=== PATIENT | male | born 1950 | race Caucasian/White ===

== ENCOUNTER 2024-08-02 08:58 | Inpatient (IN) | payer MEDICARE, SELFPAY ==
[2024-08-02] VITALS (40 sets, daily range): BP systolic 123–165; BP diastolic 55–95; PULSE 78–95; RESP 3–33; TEMP 35.9–36.9; O2SAT 95–100; BMI 28.7
--- NOTE | 2024-08-02 | DI.RAD.S_ITS ---
PROCEDURE: XR ANKLE LT MIN 3V INDICATIONS: ORIF TECHNIQUE: Fluoroscopic guidance utilized for a ankle ORIF. COMPARISON: None. FINDINGS: Fluoroscopic images submitted for an ankle ORIF. Please see operative note for further discussion. IMPRESSION: Fluoroscopic guidance. Dictated by: Nik Rodrigez M.D. on 08/03/2024 at 10:30 Approved by: Nik Rodrigez M.D. on 08/03/2024 at 10:30
--- NOTE | 2024-08-02 | DI.RAD.S_ITS ---
PROCEDURE: XR ANKLE LT 2V INDICATIONS: POST REDUCTION TECHNIQUE: 3 views of the ankle were acquired. COMPARISON: [facility], CR, XR ANKLE LT 2V, 08/02/2024, 9:11. FINDINGS: Bones: Persistent tibiotalar fracture dislocation with associated fibular fracture now in fiberglass cast. Soft tissues: No tibiotalar joint effusion. Achilles tendon appears normal. IMPRESSION: Persistent tibiotalar fracture dislocation with complete ankle mortise disruption in cast Approved by: Rafael Rubin M.D. on 08/02/2024 at 9:28
--- NOTE | 2024-08-02 09:11 | DI.RAD.S_ITS ---
PROCEDURE: XR ANKLE LT 2V INDICATIONS: deformity, fall TECHNIQUE: To views of the ankle were acquired. COMPARISON: None. FINDINGS: Bones: Oblique angulated fracture of the distal fibula as well as complete ankle mortise disruption and lateral subluxation of the talus relative to the tibia. Medial malleolus fracture with complete distraction of the distal fracture fragment which remains associated with the displaced talus. Probable small fracture of the posterior distal tibia noted as well. Soft tissues: Soft tissue swelling IMPRESSION: Tibiotalar fracture dislocation with lateral displacement of the talus Approved by: Rafael Rubin M.D. on 08/02/2024 at 9:23
--- NOTE | 2024-08-02 09:11 | DI.RAD.S_ITS ---
PROCEDURE: XR FOOT LT 2V INDICATIONS: deformity, fall TECHNIQUE: 2 views of the foot were acquired. COMPARISON: None. FINDINGS: Bones: Complete tibial talar dislocation with lateral displacement of the talus subtalar joints grossly aligned. Probable distal tibial and fibular fractures not well depicted Soft tissues: No tibiotalar joint effusion. Achilles tendon appears normal. IMPRESSION: Tibiotalar fracture dislocation with lateral displacement of the talus. Approved by: Rafael Rubin M.D. on 08/02/2024 at 9:20
--- NOTE | 2024-08-02 09:16 | DI.RAD.S_ITS ---
PROCEDURE: XR CHEST 1V INDICATIONS: fall TECHNIQUE: One view of the chest was acquired. COMPARISON: None. FINDINGS: Surgical changes and devices: None. Lungs and pleura: Left basilar atelectasis and or infiltrate. Low lung volumes accentuate pulmonary interstitium and heart size. Mediastinum: Mediastinal contours appear normal. Heart size is normal. Bones and chest wall: No suspicious bony lesions. Overlying soft tissues appear unremarkable. IMPRESSION: Left basilar atelectasis and or infiltrate Approved by: Rafael Rubin M.D. on 08/02/2024 at 9:24
--- NOTE | 2024-08-02 09:17 | EKG_ITS ---
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
--- NOTE | 2024-08-02 09:23 | ED.FALL ---
HPI - Fall General Chief Complaint: Fall Stated Complaint: Fall Time Seen by Provider: 08/02/24 09:15 Source: patient and EMS Mode of arrival: EMS History of Present Illness HPI Narrative: Patient is a 74-year-old male history of diabetes with neuropathy hypertension chronic pain on chronic morphine presenting today with mechanical fall and left ankle pain deformity. He reports that he has been chronically on morphine for years who associated refilled 2 days ago fortunately the doctor did not call it in. He was sleepwalking this morning which he says is from the withdrawal of morphine when he fell and hurt his left ankle. He has not on any antiplatelet or anticoagulation medication. Did not hit his head or lose consciousness. Has significant pain and deformity in the left ankle. Knee and hip are non tender. He says he did take 1 dose of Imodium last night for some mild diarrhea. He has not had any nausea or vomiting. He did have some water this morning but did not eat Related Data Home Medications Medication Instructions Recorded Confirmed dextroamphetamine-amphetamine 30 30 mg PO 1300 ##0 01/02/13 08/02/24 mg tablet lisinopril 40 mg tablet (Zestril) 40 mg PO DAILY ##0 01/02/13 08/02/24 metformin 1,000 mg tablet 1,000 mg PO BIDWM ##0 01/02/13 08/02/24 (Glucophage) bupropion HCl 150 mg tablet,12 hr 150 mg PO BID 08/02/24 08/02/24 sustained-release dextroamphetamine-amphetamine 30 60 mg PO QAM 08/02/24 08/02/24 mg tablet fluoxetine 40 mg capsule 40 mg PO DAILY 08/02/24 08/02/24 morphine 30 mg tablet,extended 30 mg PO BID chronic pain 08/02/24 08/02/24 release Allergies Allergy/AdvReac Type Severity Reaction Status Date / Time All ABX Allergy Unknown Diarrhea, Uncoded 08/02/24 11:44 Nausea and vomiting CLINDAMYCIN Allergy Unknown Anaphylactic Uncoded 08/02/24 11:44 reaction MSG Allergy Unknown Uncoded 08/02/24 11:44 PREDNISONE Allergy Unknown swelling Uncoded 08/02/24 11:44 IBUPROFEN AdvReac Severe stomach Uncoded 08/02/24 11:44 ache Patient History Social History details: , no children, 1 bottle of wine daily several days weekly household members: none Smoking Status: Former smoker alcohol intake: current Smoking Status: Former smoker tobacco type: cigarettes alcohol intake frequency: 0-2 drinks per day Substance Use Type: does not use Exam Initial Vital Signs Initial Vital Signs: Vital Signs Blood Pressure 165/95 H 08/02/24 09:04 GENERAL: Alert pleasant 74-year-old male HEENT: Head atraumatic,EOMI, pupils reactive, face symmetric, moist mucous membranes NECK: Nontender full range of motion CARDIOVASCULAR: Regular rate and rhythm without murmurs, rubs or gallops. RESPIRATORY: Breath sounds equal bilaterally, no wheezes rales or rhonchi. ABDOMEN: Soft, nontender. Normoactive bowel sounds all 4 quadrants. No guarding or rebound. EXTREMITIES: Normal range of motion, no clubbing or edema. Neurovascularly intact Left lower extremity obvious deformity presumed open fracture with skin breakdown no actual bone is seen externally. Peripheral pulse difficult to palpate and Doppler NEUROLOGICAL: Alert and oriented x4. Normal speech. Cranial nerves II through XII grossly intact. SKIN: Left medial malleoli some contusion and skin tear Procedures Orthopedic Fracture Reduction Fracture #1: Side: left Fracture Reduction Location: tibia and fibula Analgesia: procedural sedation Technique: direct manipulation Post Reduction X-rays Demonstrate: other (minimal improvement) Post-reduction neuro exam: intact Post-reduction vascular exam: intact (difficult to palpate, but found faint pulse and marked) Splint Applied: Yes Patient Tolerated Procedure: Well Orthopedic Splinting/Casting Injury #1: Side: left Lower Extremity Injury Location: ankle Lower Extremity Immobilizer: posterior splint and stirrup splint Post splinting neuro exam: intact Post splinting vascular exam: intact Procedural Sedation Consent signed: Yes Time out performed: Yes Indication: fracture/dislocation reduction ASA Class: II Mallampati Airway Classification: Class II IV Propofol dose (mg): 100 Intraservice time/total sedation time (min): 15 ED Sedation Level: Moderate (Concious) Patient Tolerated Procedure: Well and No complications Course Orders Ordered: ED Orders 08/02/24 10:00 Complete Blood Count AUTO DIFF Stat Comprehensive Metabolic Panel Stat Lipase Stat Troponin & CK Cardiac Panel Stat Acetaminophen (Acetaminophen 325 Mg Tablet) 650 mg PO Q6H KIM Last Admin: 08/02/24 16:01 Dose: Not Given Documented By: SHAWNA Aspirin (Aspirin Ec 325 Mg Tablet) 325 mg PO DAILY [facility] Bisacodyl (Bisacodyl 10 Mg Supp) 10 mg NM PRN PRN PRN Reason: Constipation Bupropion HCl (Bupropion Sr 150 Mg Tab) 150 mg PO BID [facility] Diphenhydramine HCl (Diphenhydramine 25 Mg Tablet) 50 mg PO Q6H PRN PRN Reason: mod to severe erythema, urticaria, or pruritis Diphenhydramine HCl (Diphenhydramine 50 Mg/Ml Vial) 50 mg IV Q6HR PRN PRN Reason: mild to moderate erythema, urticaria, or pruritis Docusate Sodium (Docusate 100 Mg Capsule) 100 mg PO BID [facility] Fluoxetine HCl (Fluoxetine 20 Mg Capsule) 40 mg PO DAILY [facility] Hydromorphone HCl (Hydromorphone 2 Mg Tablet) 2 mg PO Q4HR PRN PRN Reason: Pain, Moderate (4-6) Hydromorphone HCl (Hydromorphone 2 Mg Tablet) 4 mg PO Q4HR PRN PRN Reason: Pain, Severe (7-10) Hydromorphone HCl (Hydromorphone 0.5 Mg Inj) 0.5 mg IV Q2H PRN PRN Reason: Pain, Severe (7-10) Cefazolin Sodium/Dextrose (Ancef) 100 mls @ 200 mls/hr IV Q8H [facility] Stop: 08/03/24 04:59 Lactated Ringer's (Lactated Ringers) 1,000 mls @ 100 mls/hr IV CONT [facility] Last Admin: 08/02/24 16:04 Dose: 100 mls/hr Documented By: SHAWNA Dextrose (D10w) 100 mls @ 999 mls/hr IV PRN PRN PRN Reason: Hypoglycemia Ibuprofen (Ibuprofen 600 Mg Tablet) 600 mg PO Q6H PRN PRN Reason: Fever/Mild Pain (1-3) Insulin Human Lispro (Insulin Lispro 100 Unit/Ml 3ml Vial) 0 unit SUBCUT ACHS [facility]; Protocol Last Admin: 08/02/24 17:10 Dose: Not Given Documented By: SHAWNA Lisinopril (Lisinopril 20 Mg Tablet) 40 mg PO DAILY [facility] Metformin HCl (Metformin Hcl 500 Mg Tablet) 1,000 mg PO BIDWM [facility] Last Admin: 08/02/24 17:09 Dose: Not Given Documented By: SHAWNA Morphine Sulfate (Morphine Er 15 Mg Tablet) 30 mg PO BID [facility] Naloxone HCl (Naloxone 0.4 Mg/Ml Vial) 0.2 mg IV Q2MIN PRN PRN Reason: Opiate Reversal Naloxone HCl (Naloxone 0.4 Mg/Ml Vial) 0.2 mg IV Q2MIN PRN PRN Reason: Opiate Reversal Dextroamphetamine- Amphetamine 30 Mg Tablet 60 mg PO DAILY [facility] Dextroamphetamine- Amphetamine 30 Mg Tablet 30 mg PO 1300 [facility] Ondansetron HCl (Ondansetron 4 Mg Odt) 4 mg PO Q4HR PRN PRN Reason: Nausea And Vomiting Ondansetron HCl (Ondansetron 4 Mg/2 Ml Inj) 4 mg IV Q4HR PRN PRN Reason: Nausea And Vomiting Polyethylene Glycol (Polyethylene Glycol 3350 17 Gm Powd.Pack) 17 gm PO DAILY [facility] Sennosides (Sennosides 8.6 Mg Tablet) 17.2 mg PO BEDTIME [facility] Sodium Biphosphate/Sodium Phosphate (Fleets Enema) 1 each NM PRN PRN PRN Reason: Constipation Discontinued Medications Bupivacaine HCl 30 ml/ (Epinephrine HCl 0.15 mg) 0 ml INJ NOW ONE Stop: 08/02/24 13:02 Last Admin: 08/02/24 13:01 Dose: 30 ml Documented By: SYDNEY Diazepam (Diazepam 5 Mg Tablet) 10 mg PO QDAY PRN PRN Reason: Spasms Diphtheria/Tetanus/Acell Pertussis (Tet,Diph,Pertuss(Acell),Vac/Pf 0.5 Ml Syringe) 0.5 ml IM .ONCE ONE Stop: 08/02/24 15:24 Fentanyl (Fentanyl 100 Mcg/2 Ml Inj) 0 mcg IV Q5MIN PRN PRN Reason: Pain, Severe (7-10) Fentanyl (Fentanyl 100 Mcg/2 Ml Inj) 0 mcg IV Q5M PRN PRN Reason: Pain, Moderate (4-6) Fentanyl (Fentanyl 100 Mcg/2 Ml Inj) 0 mcg IV Q5M PRN PRN Reason: Pain, Severe (7-10) Hydromorphone HCl (Hydromorphone 1 Mg Inj) 1 mg IV NOW ONE Stop: 08/02/24 09:43 Last Admin: 08/02/24 09:47 Dose: 1 mg Documented By: KAISER Hydromorphone HCl (Hydromorphone 1 Mg Inj) 1 mg IV NOW ONE Stop: 08/02/24 10:36 Last Admin: 08/02/24 10:44 Dose: 1 mg Documented By: KAISER Hydromorphone HCl (Hydromorphone 1 Mg Inj) 0 mg IV Q5MIN PRN PRN Reason: Pain, Mild (1-3) Hydromorphone HCl (Hydromorphone 1 Mg Inj) 0 mg IV Q5MIN PRN PRN Reason: Pain, Moderate (4-6) Hydromorphone HCl (Hydromorphone 1 Mg Inj) 0 mg IV Q5MIN PRN PRN Reason: Pain, Severe (7-10) Lactated Ringer's (Lactated Ringers) 1,000 mls @ 42 mls/hr IV CONT [facility] Last Admin: 08/02/24 14:14 Dose: 42 mls/hr Documented By: Infusion: 08/02/24 14:14 Dose: Infused Documented By: Admin: 08/02/24 13:13 Dose: 42 mls/hr Documented By: Infusion: 08/02/24 13:13 Dose: Infused Documented By: Admin: 08/02/24 11:40 Dose: 42 mls/hr Documented By: ALANA Cefazolin Sodium/Dextrose (Ancef) 100 mls @ 200 mls/hr IV NOW ONE Stop: 08/02/24 13:29 Last Infusion: 08/02/24 12:35 Dose: Infused Documented By: Admin: 08/02/24 12:23 Dose: 200 mls/hr Documented By: STACY Lorazepam (Lorazepam 2 Mg/Ml Inj) 0.5 mg IV NOW PRN PRN Reason: Anxiety Non-Formulary Medication (Dextroamphetamine Sulfate) 10 mg PO BID [facility] Ondansetron HCl (Ondansetron 4 Mg/2 Ml Inj) 4 mg IV NOW PRN PRN Reason: Nausea And Vomiting Oxycodone/Acetaminophen (Oxycodone/Acetaminophen 5/325 Tablet) 1 tab PO [place] PRN PRN Reason: Mild or Moderate Pain Propofol (Propofol 200 Mg/20 Ml Vial) 90 mg IV NOW ONE Stop: 08/02/24 09:17 Last Admin: 08/02/24 09:32 Dose: 90 mg Documented By: KAISER Vital Signs Vital signs: Vital Signs - 8 hr 08/02/24 10:25 08/02/24 10:25 08/02/24 10:30 Pulse Rate 87 85 Respiratory Rate 18 23 Blood Pressure 155/83 H Pulse Oximetry 96 97 Oxygen Delivery Method 08/02/24 10:30 08/02/24 10:35 08/02/24 10:35 Pulse Rate 84 Respiratory Rate 19 Blood Pressure 154/75 H 152/77 H Pulse Oximetry 95 Oxygen Delivery Method 08/02/24 10:39 08/02/24 10:39 08/02/24 10:45 Pulse Rate 90 Respiratory Rate 22 Blood Pressure 147/80 H 155/82 H Pulse Oximetry 97 Oxygen Delivery Method Room Air 08/02/24 10:45 08/02/24 11:00 08/02/24 11:00 Pulse Rate 86 87 Respiratory Rate 18 15 Blood Pressure 145/76 H Pulse Oximetry 97 96 Oxygen Delivery Method Room Air MDM - Fall Lab Data 08/02/24 10:00 08/02/24 10:00 Labs: Lab Results 08/02/24 Range/Units 10:00 WBC 10.8 (4.5-11.0) X10^3/uL RBC 3.47 L (4.5-5.9) X10^6/uL Hgb 11.2 L (13.5-17.5) g/dL Hct 33.0 L (41-53) % MCV 95.1 (80-100) fL MCH 32.2 (26-34) PG MCHC 33.9 (30-36) % RDW 13.4 (11.6-14.8) % Plt Count 238 (150-400) X10^3/uL Neut % (Auto) 78.5 H (50-75) % Lymph % (Auto) 11.4 L (25-40) % [place] % (Auto) 9.8 (3-14) % Eos % (Auto) 0.1 L (2-4) % Baso % (Auto) 0.2 (0-2) % Neut # (Auto) 8500 H (4250-1558) /uL Lymph # (Auto) 1200 (1636-3423) /uL [place] # (Auto) 1100 H (0-900) /uL Eos # (Auto) 0 (0-450) /uL Baso # (Auto) 0 (0-100) /uL Sodium 137 (137-145) mmol/L Potassium 4.5 (3.4-5.1) mmol/L Chloride 106 (98-107) mmol/L Carbon Dioxide 19 L (22-32) mmol/L BUN 18 (9-20) mg/dL Creatinine 0.87 (0.66-1.25) mg/dL Estimated GFR > 60 (>60) mL/min BUN/Creatinine Ratio 20.7 (6-22) Glucose 67 L (80-110) mg/dL Calcium 8.7 (8.4-10.2) mg/dL Total Bilirubin 0.5 (0.2-1.3) mg/dL AST 54 (17-59) IU/L ALT 28 (<50) IU/L Alkaline Phosphatase 51 (38-126) U/L Total Creatine Kinase 633 H (55-170) U/L Troponin I < 0.012 (0.01-0.034) ng/mL Total Protein 7.1 (6.3-8.2) g/dL Albumin 4.1 (3.5-5.0) g/dL Globulin 3.0 (1.7-4.1) g/dL Albumin/Globulin Ratio 1.4 (1.0-2.8) Lipase 99 (23-300) U/L Imaging Data Extremity x-ray #1: Radiologist's Impression: PROCEDURE: XR ANKLE LT 2V INDICATIONS: POST REDUCTION TECHNIQUE: 3 views of the ankle were acquired. COMPARISON: [facility], , XR ANKLE LT 2V, 08/02/2024, 9:11. FINDINGS: Bones: Persistent tibiotalar fracture dislocation with associated fibular fracture now in fiberglass cast. Soft tissues: No tibiotalar joint effusion. Achilles tendon appears normal. IMPRESSION: Persistent tibiotalar fracture dislocation with complete ankle mortise disruption in cast Approved by: Rafael Rubin M.D. on 08/02/2024 at 9:28 Extremity x-ray #2: Radiologist's Impression: PROCEDURE: XR ANKLE LT 2V INDICATIONS: deformity, fall TECHNIQUE: To views of the ankle were acquired. COMPARISON: None. FINDINGS: Bones: Oblique angulated fracture of the distal fibula as well as complete ankle mortise disruption and lateral subluxation of the talus relative to the tibia. Medial malleolus fracture with complete distraction of the distal fracture fragment which remains associated with the displaced talus. Probable small fracture of the posterior distal tibia noted as well. Soft tissues: Soft tissue swelling IMPRESSION: Tibiotalar fracture dislocation with lateral displacement of the talus Approved by: Rafael Rubin M.D. on 08/02/2024 at 9:23 Extremity x-ray #3: Radiologist's Impression: PROCEDURE: XR FOOT LT 2V INDICATIONS: deformity, fall TECHNIQUE: 2 views of the foot were acquired. COMPARISON: None. FINDINGS: Bones: Complete tibial talar dislocation with lateral displacement of the talus subtalar joints grossly aligned. Probable distal tibial and fibular fractures not well depicted Soft tissues: No tibiotalar joint effusion. Achilles tendon appears normal. IMPRESSION: Tibiotalar fracture dislocation with lateral displacement of the talus. Approved by: Rafael Rubin M.D. on 08/02/2024 at 9:20 ECG Data Prior ECG tracings: available for review Interpretation: Normal sinus rhythm rate 83 NM interval 144 QRS [address] changes MDM Narrative Medical decision making narrative: [facility] CC: Left ankle fracture Complicating co-morbidities: Diabetes neuropathy Corroborating data: Spoke with friend Dani Elmore [phone], patient lives alone in a 3rd floor apartment with stairs Medical records reviewed: No prior records Differential considered: Syncopal episode open fracture Exam documented above, pertinent findings include: Patient does have some skin breakdown on the medial side of the medial malleoli initially difficult to palpate pulse. No other injury Lab Test results independently reviewed as above. Pertinent findings: CBC shows WBC 10.8 hemoglobin 11.2 hematocrit 33.0 platelets 238 CMP sodium 137 potassium 4.5 chloride 106 carbon dioxide 19 creatinine 0.8 glucose 67 troponin negative CPK 633 Independently reviewed EKG as above no ischemia Imaging studies independently reviewed: Persistent tibiotalar dislocation Consultations: 10:25 Dr. Greenfield orthopedics updated patient's symptoms test results, concern for open fracture difficult to palpate pulse, she is reviewed imaging will be taking patient to the operating room Treatments: Dilaudid, propofol Re-evaluations: During reduction patient flexed and moved significantly unable to completely reduce dislocation fracture. Pulse hard to palpate initially found a faint pulse after attempt he is able to move toes he has good cap refill Discussion: 74-year-old male on chronic pain medication presents today after mechanical fall with dislocated fracture ankle. He has a difficult to palpate pulse and some skin breakdown presumed open fracture. Dr. Greenfield with Orthopedics as reviewed imaging taking patient OR I personally called and spoken with patient's friend who is aware of patient's situation Discharge Plan Departure Patient Disposition: Admitted As Inpatient Clinical Impression: Fracture of ankle, left, open Qualifiers: Encounter type: initial encounter Open fracture type: open type I or II Qualified Code(s): S82.892B - Other fracture of left lower leg, initial encounter for open fracture type I or II Admit Date/Time: 08/02/24 11:05 Admit Provider: Angelic Greenfield
[2024-08-02] MEDS: propofoL 200 MG/20 ML VIAL 90 MG IV (09:32)
[2024-08-02] MEDS: HYDROMORPHONE 1 MG INJ IV ×2 (09:47→10:44)
--- NOTE | 2024-08-02 09:51 | PC.NURSE ---
Upon arrival, Attempted to feel pulses in right and left foot. No pulses found in either. unable to get doppler pulses . dr. Li aware.
[2024-08-02 10:07] LABS: Add Manual Diff / Slide Review NO; Basophils Absolute Auto 0 /uL (0-100); Basophils Percent Auto 0.2 % (0-2); Eosinophils Absolute Auto 0 /uL (0-450); Eosinophils Percent Auto 0.1 % (2-4); Hemoglobin 11.2 g/dL (13.5-17.5); Lymphocytes Absolute Auto 1200 /uL (1100-4500); Lymphocytes Percent Auto 11.4 % (25-40); Mean Corpuscular HGB Conc 33.9 % (30-36); Mean Corpuscular Hemoglobin 32.2 PG (26-34); Mean Corpuscular Volume 95.1 fL (80-100); Monocytes Absolute Auto 1100 /uL (0-900); Monocytes Percent Auto 9.8 % (3-14); Neutrophils Absolute Auto 8500 /uL (1500-7000); Neutrophils Percent Auto 78.5 % (50-75); Platelet Count 238 X10^3/uL (150-400); Red Blood Cell Count 3.47 X10^6/uL (4.5-5.9); Red Cell Distribution Width 13.4 % (11.6-14.8); White Blood Cell Count 10.8 X10^3/uL (4.5-11.0)
[2024-08-02 10:19] LABS: Alanine Aminotransferase 28 IU/L (<50); Albumin 4.1 g/dL (3.5-5.0); Albumin Globulin Ratio 1.4 (1.0-2.8); Alkaline Phosphatase 51 U/L (38-126); Aspartate Aminotransferase 54 IU/L (17-59); BUN Creatinine Ratio 20.7 (6-22); Bilirubin Total 0.5 mg/dL (0.2-1.3); Blood Urea Nitrogen 18 mg/dL (9-20); Calcium 8.7 mg/dL (8.4-10.2); Carbon Dioxide 19 mmol/L (22-32); Chloride 106 mmol/L (98-107); Creatine Kinase 633 U/L (55-170); Estimated Glomerular Filt Rate > 60 mL/min (>60); Glucose 67 mg/dL (80-110); HEMOLYSIS < 15 (0-50); Lipase 99 U/L (23-300); Potassium 4.5 mmol/L (3.4-5.1); Sodium 137 mmol/L (137-145); Total Protein 7.1 g/dL (6.3-8.2)
[2024-08-02 10:31] LABS: Troponin I < 0.012 ng/mL (0.01-0.034)
--- NOTE | 2024-08-02 10:45 | PM.HP.1 ---
History of Present Illness History of Present Illness Date Patient Seen: 08/02/24 Time Patient Seen: 10:46 Date of Onset of Symptoms: 08/02/24 Chief complaint: Fall Narrative: The patient is a 74-year-old male who sustained a ankle fracture dislocation with impending open fracture and traumatized medial skin. He had an unsuccessful reduction attempt in the emergency room and the skin was noted to be severely abraded and tenuous. With unsuccessful reduction. Patient was indicated for open reduction internal fixation irrigation debridement and reduction in the operative room. He has not had anything to eat today. He did have a small amount of water earlier. Notes an allergy to clindamycin and diarrhea with antibiotics. He has not on any blood thinners. He has a previous smoker but states he does not smoked in years. He has a diabetic and takes metformin. He has not sure when his last hemoglobin A1c was but believes it was below 7. His primary care doctor is Dr. Kennedy. He has been on long time 30 mg of long-acting morphine sulfate b.i.d.. States he has not had any of this medication since . He states this was an involuntary withdrawal as his primary care did not call in a prescription refill and he ran out of medications. He said since then he is been sleepwalking and that is how he fell and sustained the injury. He was found to be hypoglycemic in the ER. He denies any other major heart or lung problems. He lives on a 3rd floor building Denies loss of consciousness [facility] Social History Smoking Status: Former smoker Meds Home Medications and Allergies Home Medications Medication Instructions Recorded Confirmed Type dextroamphetamine sulfate 10 mg 10 mg PO BID ##0 01/02/13 History tablet dextroamphetamine-amphetamine 30 30 mg PO BID ##0 01/02/13 History mg tablet diazepam 10 mg tablet (Valium) 10 mg PO QDAY PRN ##0 01/02/13 History lisinopril 40 mg tablet (Zestril) 40 mg PO QDAY ##0 01/02/13 History metformin 1,000 mg tablet 1,000 mg PO BIDCC ##0 01/02/13 History (Glucophage) morphine 60 mg tablet,extended 60 mg PO BID ##0 01/02/13 History release (MS Contin) Allergies Allergy/AdvReac Type Severity Reaction Status Date / Time All ABX Allergy Unknown Diarrhea, Uncoded 08/02/24 09:22 Nausea and vomiting CLINDAMYCIN Allergy Unknown Anaphylactic Uncoded 08/02/24 09:22 reaction MSG Allergy Unknown Uncoded 08/02/24 09:22 PREDNISONE Allergy Unknown swelling Uncoded 08/02/24 09:22 IBUPROFEN AdvReac Severe stomach Uncoded 08/02/24 09:22 ache Review of Systems Review of Systems Narrative: Left ankle pain, hypertension, no fevers chills nausea or vomiting. Has been going through withdrawals from opioids involuntarily Exam Vital Signs (past 8 hours): - 08/02/24 09:04 08/02/24 09:05 08/02/24 09:10 Temperature Pulse Rate 94 H 94 H Respiratory Rate 21 26 H Blood Pressure 165/95 H Pulse Oximetry 98 98 Oxygen Delivery Method 08/02/24 09:12 08/02/24 09:15 08/02/24 09:20 Temperature 98.3 F Pulse Rate 93 H 92 H 91 H Respiratory Rate 18 24 22 Blood Pressure 165/95 H Pulse Oximetry 98 98 98 Oxygen Delivery Method Room Air 08/02/24 09:25 08/02/24 09:26 08/02/24 09:26 Temperature Pulse Rate 94 H 94 H Respiratory Rate 33 H 32 H Blood Pressure 153/94 H Pulse Oximetry 98 98 Oxygen Delivery Method 08/02/24 09:30 08/02/24 09:30 08/02/24 09:30 Temperature Pulse Rate 91 H 93 H Respiratory Rate 16 18 Blood Pressure 162/94 H Pulse Oximetry 98 Oxygen Delivery Method 08/02/24 09:35 08/02/24 09:35 08/02/24 09:40 Temperature Pulse Rate 90 Respiratory Rate 26 H Blood Pressure 157/73 H 153/72 H Pulse Oximetry 100 Oxygen Delivery Method 08/02/24 09:40 08/02/24 09:45 08/02/24 09:45 Temperature Pulse Rate 92 H 92 H Respiratory Rate 21 26 H Blood Pressure 149/58 H Pulse Oximetry 100 99 Oxygen Delivery Method 08/02/24 09:50 08/02/24 09:50 08/02/24 09:55 Temperature Pulse Rate 92 H Respiratory Rate 29 H Blood Pressure 151/86 H 152/90 H Pulse Oximetry 98 Oxygen Delivery Method 08/02/24 09:55 08/02/24 10:00 08/02/24 10:00 Temperature Pulse Rate 91 H 90 Respiratory Rate 24 25 H Blood Pressure 149/80 H Pulse Oximetry 97 97 Oxygen Delivery Method 08/02/24 10:05 08/02/24 10:05 08/02/24 10:10 Temperature Pulse Rate 89 Respiratory Rate 25 H Blood Pressure 152/77 H 145/74 H Pulse Oximetry 97 Oxygen Delivery Method 08/02/24 10:10 08/02/24 10:15 08/02/24 10:15 Temperature Pulse Rate 90 88 Respiratory Rate 21 17 Blood Pressure 144/74 H Pulse Oximetry 97 97 Oxygen Delivery Method 08/02/24 10:20 08/02/24 10:20 08/02/24 10:25 Temperature Pulse Rate 88 87 Respiratory Rate 20 18 Blood Pressure 147/79 H Pulse Oximetry 97 96 Oxygen Delivery Method 08/02/24 10:25 08/02/24 10:30 08/02/24 10:30 Temperature Pulse Rate 85 Respiratory Rate 23 Blood Pressure 155/83 H 154/75 H Pulse Oximetry 97 Oxygen Delivery Method 08/02/24 10:35 08/02/24 10:35 Temperature Pulse Rate 84 Respiratory Rate 19 Blood Pressure 152/77 H Pulse Oximetry 95 Oxygen Delivery Method Oxygen Delivery Method Room Air Narrative Exam Narrative: General examined alert and oriented male in the ER stretcher. There is a posterior splint and wrap on the left lower extremity the Pramod wrap. Lungs are clear to auscultation heart regular rate and rhythm. Moving bilateral upper extremities in the right lower extremity. Wiggles toes on the left lower extremity. Thigh soft. No knee effusion. No erythema. Remainder of left exam deferred. There is some drainage on the Pramod wrap and a picture of the medial ankle demonstrated a transverse laceration with underlying ecchymosis tented skin and bleeding consistent with open or impending open fracture. Dorsalis pedis pulses not well palpated but capillary refill is brisk. Calf is soft. Splint in place. Deformity noted consistent with persistent lateral subluxation of the ankle joint. Objective Imaging X-ray left ankle: My impression: AP and lateral left ankle x-rays to be ankle fracture dislocation, severe lateral displacement of the talus. Comminuted distal fibula fracture with displacement and skin tissue shadows suggest possible open fracture medially Radiologist's impression: Tibiotalar fracture dislocation with lateral displacement of the talus Labs 08/02/24 10:00 08/02/24 10:00 Labs: Laboratory Results - last 24 hr 08/02/24 10:00 WBC 10.8 RBC 3.47 L Hgb 11.2 L Hct 33.0 L MCV 95.1 MCH 32.2 MCHC 33.9 RDW 13.4 Plt Count 238 Neut % (Auto) 78.5 H Lymph % (Auto) 11.4 L Hendricks % (Auto) 9.8 Eos % (Auto) 0.1 L Baso % (Auto) 0.2 Neut # (Auto) 8500 H Lymph # (Auto) 1200 Hendricks # (Auto) 1100 H Eos # (Auto) 0 Baso # (Auto) 0 Sodium 137 Potassium 4.5 Chloride 106 Carbon Dioxide 19 L BUN 18 Creatinine 0.87 Estimated GFR > 60 BUN/Creatinine Ratio 20.7 Glucose 67 L Calcium 8.7 Total Bilirubin 0.5 AST 54 ALT 28 Alkaline Phosphatase 51 Total Creatine Kinase 633 H Total Protein 7.1 Albumin 4.1 Globulin 3.0 Albumin/Globulin Ratio 1.4 Lipase 99 Assessment & Plan Assessment and plan (1) Fracture of ankle, left, open: Qualifiers: Encounter type: initial encounter Open fracture type: open type I or II Qualified Code(s): S82.892B - Other fracture of left lower leg, initial encounter for open fracture type I or II Status: Acute (2) Fracture dislocation of ankle: Qualifiers: Encounter type: initial encounter Fracture type: open Laterality: left Open fracture type: open type I or II Qualified Code(s): S82.892B - Other fracture of left lower leg, initial encounter for open fracture type I or II Status: Acute (3) Chronic narcotic dependence: Status: Acute (4) Diabetes: Qualifiers: Diabetes mellitus type: type 2 Diabetes mellitus detention insulin use: without detention use Diabetes mellitus complication status: with neurologic complications Diabetes mellitus complication detail: with polyneuropathy Qualified Code(s): E11.42 - Type 2 diabetes mellitus with diabetic polyneuropathy Status: Acute Plan Patient was a 74-year-old male with a type 1 open left ankle fracture dislocation indicated for open reduction internal fixation irrigation and debridement in the operating room. Failed reduction in the emergency room. He has a high narcotic tolerance due to his long-term use. He is indicated for urgent reduction and fixation in the emergency room and he was brought directly from the ER to the preoperative unit for this. We discussed risks benefits and alternatives to surgery. And consent was signed. The risks and benefits of the procedure have been discussed with the patient and given the opportunity to ask questions. The risks of surgery include but are not limited to infection, malunion, nonunion, persistence of pain, damage to nerves and blood vessels, posttraumatic arthritis, DVT, PE, cardiopulmonary complications and . The patient expressed a thorough understanding of the risks and benefits of surgery and has elected to proceed. Postoperatively will place him on his baseline narcotics plus additional immediate acting medication. His baseline is 30 of morphine sulfate ER b.i.d.. May need assistance with discharge due to living situation.. And we will need diabetic management. Appreciate hospitalist assistance with medical management. Postop DVT prophylaxis will be 325 mg aspirin daily x6 weeks Assessment & Plan narrative: Indication for urgent surgery for repair open fracture dislocation and inpatient admission for pain control treatment of open fracture antibiotics and [facility] physical therapy and discharge planning. High-level medical decision-making decision for inpatient admission and urgent surgery. Time-Based Coding :: [TOTAL MINUTES] spent with patient and on the chart (including review of chart, obtaining history, exam, reviewing outside data, placing orders, documenting exam and treatment plan, and counseling patient) on [DATE].
[2024-08-02] MEDS: LACTATED RINGERS 1,000 ML 42 ML IV ×3 (11:40→14:14)
--- NOTE | 2024-08-02 11:55 | SUR.HOLD ---
Patient AAO x 3; slight tremor noted in hands but no nausea or diaphoresis; patient is on chronic morphine for 30 years but took his last dose on ; patient has not had his RX refilled.
--- NOTE | 2024-08-02 12:19 | PM.OP.1 ---
Operative Date/Time/Diagnoses Date of procedure: 08/02/24 Time of procedure: 12:19 Pre-op diagnosis: Open ankle fracture dislocation, left type 1 Diabetic neuropathy Chronic narcotic use Trimalleolar ankle fracture dislocation Post-op diagnosis: same Procedure & Clinicians Procedure: Open reduction internal fixation trimalleolar ankle fracture without fixation posterior lip CPT code 83899, left Open reduction internal fixation syndesmosis CPT code 50951, left Irrigation debridement skin subcutaneous tissue fascia bone from open fracture CPT code 94203, left Same procedure as scheduled: Yes Indications: The patient is a 74-year-old male that takes typically 30 mg of long-acting morphine sulfate b.i.d. for many years he ran out of this medication on and has been an involuntary withdrawals. He was sleep walking which he states it is a side effect of loose withdrawals and twisted his ankle and fell. He does have diabetic neuropathy. He sustained a left ankle fracture dislocation was unable to ambulate with obvious deformity. He was indicated for open reduction internal fixation of his open ankle fracture dislocation. The risks and benefits of the procedure have been discussed with the patient and given the opportunity to ask questions. The risks of surgery include but are not limited to infection, malunion, nonunion, persistence of pain, damage to nerves and blood vessels, posttraumatic arthritis, DVT, PE, cardiopulmonary complications and . The patient expressed a thorough understanding of the risks and benefits of surgery and has elected to proceed. Consent was signed Surgeon: Angelic Greenfield Click Yes if Unassisted: Yes Anesthesia Type: General and Local Operative Notes Findings: Type 1 open trimalleolar ankle fracture dislocation. Poke hole open wound medial malleolus with abrasion -- Medial malleolus: Reduction fixation with 2 x 4.0 cannulated screws Lateral malleolus: 8 hole 1/3 tubular locking capable plate Syndesmotic disruption reduction and fixation: 2 x 4.7 osteopenia screws, tricortical Closure Type: primary Specimen(s): none sent Prosthetic devices, grafts, tissues, transplants, or devices: Nayak and Nephew 1/3 tubular locking plate 8 hole. 13.5 locking screw distally. Remainder of screws 3.5 nonlocking screws. Nayak and Nephew 4.0 cannulated screws x 2 : 40 mm partially threaded Nayak and [employer]hew 4.7 osteoporosis syndesmotic screws. X2 55 mm Estimated Blood Loss (mL): 150 Blood products transfused: none Tourniquet time (min): 150 Procedure in detail: Patient was seen in the preoperative area the site of surgery was marked informed consent confirmed. This was the left ankle. Patient was then brought back to the operating room by the anesthesia team and positioned supine on the operative table. Bony prominences well padded. A well-padded thigh tourniquet was applied. An SCD was placed on the contralateral lower extremity. The left lower extremity was then prepped and draped in standard sterile fashion a formal time-out procedure was performed confirming the patient's side and site of surgery administration of the appropriate preoperative antibiotic which was 2 g of Ancef. All were in agreement. Attention was turned to the left lower extremity Esmarch was used for exsanguination and the tourniquet raised on the thigh to 250 mmHg. The open wound medially was excised sharply and excision was extended longitudinally to expose the open medial malleolar fracture. Skin subcutaneous tissue fascia and the bone was thoroughly debrided. Hematoma was evacuated joint was evaluated cartilage grossly intact on visualized part of talus. Next the medial malleolus was reduced with a pointed reduction clamp and pinned in place. Reduction was checked under fluoroscopy and guidewires for the 4.0 cannulated screws were placed these were overdrilled and 2 of the 4.0 cannulated lag screws were applied for medial malleolar fracture fixation. Once this is completed attention was turned laterally. A separate posterolateral incision was made just off the fibular border posterior laterally in a longitudinal fashion. Dissection was taken through the skin subcutaneous tissues to the level of the fibula. The peroneal tendons were retracted posteriorly. The fracture was identified and cleaned with a curette and scalpel blade. Reduction was completed with the periarticular reduction clamps and checked for alignment under the intraoperative fluoroscopy. This was a comminuted fracture and they are small butterfly pieces posteriorly. Once this was appropriate a 1/3 tubular locking capable plate was applied posterolaterally and secured proximally with nonlocking screws and distally with locking screws to avoid prominence. The posterior malleolus was small and was treated non operatively. Syndesmosis was unstable this was reduced with thumb pressure and pinned. Open holes left in the lateral fibular plate were then drilled with a proximally 30 degree ankle posterior to anterior across the fibula and tibia in a tetra cortical fashion. This was measured and 2 of the osteoporosis 4.7 syndesmotic screws were placed tricortical with good bite. Reduction was checked in AP, mortise and lateral planes. This was excellent. Final tightening of all screws was completed. Wounds were thoroughly irrigated with saline. And the wounds were closed with 2-0 Vicryl 4-0 Monocryl and 3-0 nylon suture. Local anesthetic was infiltrated for postoperative pain control. Sterile dressings were placed with Xeroform gauze and Webril. Patient was placed into a stirrup and posterior splint with bulky Mendez cotton in neutral position. He was woken from anesthesia and taken to recovery unit in good condition there were no immediate complications from this procedure. Complications: none Post-operative Condition: stable Disposition: PACU Plan for aftercare: Diabetic ankle fracture --we will do a 10-12 weeks nonweightbearing in neuropathic patient. DVT prophylaxis with aspirin 325 mg enteric-coated x6 weeks, once daily. Sutures remain in place a minimum of 3 weeks. We will have 24 hours of postoperative antibiotics. Pain control in the hospital will be his baseline pain medication plus additional immediate acting pain medication. Follow up in orthopedic clinic for suture removal 3 weeks.
[2024-08-02] MEDS: CEFAZOLIN 2 GM/100 ML PREMIX 100 ML IV ×2 (12:23→20:26)
--- NOTE | 2024-08-02 12:50 | SUR.OPER ---
Supine on padded OR bed, head on pillow, arms secured on padded arm boards at <90 degrees abduction, legs uncrossed, safety belt at waist, tape over blanket over lower right legs. left leg draped free
[2024-08-02] MEDS: BUPIVACAINE 0.25% (PF) 30 ML, EPINEPHrine 0.15 MG INJ (13:01)
--- NOTE | 2024-08-02 14:56 | SUR.PHASEI ---
Late entry: In pre-op, patient states that he has not voided since about 4-5 a.m. (the time as of patient's comments is approximately 11:45) and that he often has trouble starting his stream. Unable to void to urinal. To OR. Will reassess after surgery.
--- NOTE | 2024-08-02 14:58 | SUR.PHASEI ---
Patient to phase 1. Vss. [place] slightly distended. Bladder scan assessing only about 200 mls but bladder appears more distended than what is registered. Straight cath performed using sterile technique; 550 mls of clear yellow urine emptied. Patient tolerated well.
--- NOTE | 2024-08-02 15:18 | P.CONS_ITS ---
History of Present Illness Consult details Date Patient Seen: 08/02/24 Time Patient Seen: 14:45 Chief complaint: Fall Reason for consult: Medical management Requesting provider: Angelic Greenfield Narrative: 74-year-old man under the primary care of Dr. 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 in his left ankle. He was brought to the emergency department where x-rays reported at tibiotalar fracture dislocation with lateral displacement of the talus. He underwent operative repair by Dr. Angelic Greenfield without incident. This is reportedly an open fracture with a small pinpoint of exposed bone. He is seen in the recovery room relating this history. He has had no recent events otherwise. He is on chronic pain medication for ?pain all over my body? as well as dextroamphetamine for ADD, and takes metformin for diabetes, noting most of his hemoglobin A1cs have been below 7%. He states no cardiac history and no history of lung disease, cancer, recent infectious symptoms. He lives alone in a 3rd floor apartment. He feels that he will be able to manage this with crutches. 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 Meds Home Medications and Allergies Home Medications Medication Instructions Recorded Confirmed Type dextroamphetamine sulfate 10 mg 10 mg PO BID ##0 01/02/13 History tablet dextroamphetamine-amphetamine 30 30 mg PO BID ##0 01/02/13 History mg tablet diazepam 10 mg tablet (Valium) 10 mg PO QDAY PRN ##0 01/02/13 History lisinopril 40 mg tablet (Zestril) 40 mg PO QDAY ##0 01/02/13 History metformin 1,000 mg tablet 1,000 mg PO BIDCC ##0 01/02/13 History (Glucophage) morphine 60 mg tablet,extended 60 mg PO BID ##0 01/02/13 08/02/24 History release (MS Contin) Allergies Allergy/AdvReac Type Severity Reaction Status Date / Time All ABX Allergy Unknown Diarrhea, Uncoded 08/02/24 11:44 Nausea and vomiting CLINDAMYCIN Allergy Unknown Anaphylactic Uncoded 08/02/24 11:44 reaction MSG Allergy Unknown Uncoded 08/02/24 11:44 PREDNISONE Allergy Unknown swelling Uncoded 08/02/24 11:44 IBUPROFEN AdvReac Severe stomach Uncoded 08/02/24 11:44 ache Review of Systems Review of Systems ROS: Yes All systems reviewed with the patient and are negative except as otherwise documented Exam Vital Signs (past 8 hours): - 08/02/24 09:04 08/02/24 09:05 08/02/24 09:10 Temperature Pulse Rate 94 H 94 H Respiratory Rate 21 26 H Blood Pressure 165/95 H Pulse Oximetry 98 98 Oxygen Delivery Method Oxygen Flow Rate 08/02/24 09:12 08/02/24 09:15 08/02/24 09:20 Temperature 98.3 F Pulse Rate 93 H 92 H 91 H Respiratory Rate 18 24 22 Blood Pressure 165/95 H Pulse Oximetry 98 98 98 Oxygen Delivery Method Room Air Oxygen Flow Rate 08/02/24 09:25 08/02/24 09:26 08/02/24 09:26 Temperature Pulse Rate 94 H 94 H Respiratory Rate 33 H 32 H Blood Pressure 153/94 H Pulse Oximetry 98 98 Oxygen Delivery Method Oxygen Flow Rate 08/02/24 09:30 08/02/24 09:30 08/02/24 09:30 Temperature Pulse Rate 91 H 93 H Respiratory Rate 16 18 Blood Pressure 162/94 H Pulse Oximetry 98 Oxygen Delivery Method Oxygen Flow Rate 08/02/24 09:35 08/02/24 09:35 08/02/24 09:40 Temperature Pulse Rate 90 Respiratory Rate 26 H Blood Pressure 157/73 H 153/72 H Pulse Oximetry 100 Oxygen Delivery Method Oxygen Flow Rate 08/02/24 09:40 08/02/24 09:45 08/02/24 09:45 Temperature Pulse Rate 92 H 92 H Respiratory Rate 21 26 H Blood Pressure 149/58 H Pulse Oximetry 100 99 Oxygen Delivery Method Oxygen Flow Rate 08/02/24 09:50 08/02/24 09:50 08/02/24 09:55 Temperature Pulse Rate 92 H Respiratory Rate 29 H Blood Pressure 151/86 H 152/90 H Pulse Oximetry 98 Oxygen Delivery Method Oxygen Flow Rate 08/02/24 09:55 08/02/24 10:00 08/02/24 10:00 Temperature Pulse Rate 91 H 90 Respiratory Rate 24 25 H Blood Pressure 149/80 H Pulse Oximetry 97 97 Oxygen Delivery Method Oxygen Flow Rate 08/02/24 10:05 08/02/24 10:05 08/02/24 10:10 Temperature Pulse Rate 89 Respiratory Rate 25 H Blood Pressure 152/77 H 145/74 H Pulse Oximetry 97 Oxygen Delivery Method Oxygen Flow Rate 08/02/24 10:10 08/02/24 10:15 08/02/24 10:15 Temperature Pulse Rate 90 88 Respiratory Rate 21 17 Blood Pressure 144/74 H Pulse Oximetry 97 97 Oxygen Delivery Method Oxygen Flow Rate 08/02/24 10:20 08/02/24 10:20 08/02/24 10:25 Temperature Pulse Rate 88 87 Respiratory Rate 20 18 Blood Pressure 147/79 H Pulse Oximetry 97 96 Oxygen Delivery Method Oxygen Flow Rate 08/02/24 10:25 08/02/24 10:30 08/02/24 10:30 Temperature Pulse Rate 85 Respiratory Rate 23 Blood Pressure 155/83 H 154/75 H Pulse Oximetry 97 Oxygen Delivery Method Oxygen Flow Rate 08/02/24 10:35 08/02/24 10:35 08/02/24 10:39 Temperature Pulse Rate 84 90 Respiratory Rate 19 22 Blood Pressure 152/77 H Pulse Oximetry 95 97 Oxygen Delivery Method Room Air Oxygen Flow Rate 08/02/24 10:39 08/02/24 10:45 08/02/24 10:45 Temperature Pulse Rate 86 Respiratory Rate 18 Blood Pressure 147/80 H 155/82 H Pulse Oximetry 97 Oxygen Delivery Method Room Air Oxygen Flow Rate 08/02/24 11:00 08/02/24 11:00 08/02/24 11:33 Temperature 98.1 F Pulse Rate 87 91 H Respiratory Rate 15 20 Blood Pressure 145/76 H 159/86 H Pulse Oximetry 96 98 Oxygen Delivery Method Room Air Oxygen Flow Rate 08/02/24 14:29 08/02/24 14:40 08/02/24 14:44 Temperature 98.5 F Pulse Rate 78 89 82 Respiratory Rate 12 11 L 17 Blood Pressure 139/75 144/82 H 161/88 H Pulse Oximetry 100 100 100 Oxygen Delivery Method Nasal Cannula Nasal Cannula Nasal Cannula Oxygen Flow Rate 3 2 3 08/02/24 14:50 08/02/24 15:00 08/02/24 15:05 Temperature Pulse Rate 83 85 85 Respiratory Rate 16 14 18 Blood Pressure 146/81 H 165/94 H 165/94 H Pulse Oximetry 100 100 100 Oxygen Delivery Method Nasal Cannula Nasal Cannula Nasal Cannula Oxygen Flow Rate 3 2 2 08/02/24 15:08 Temperature 98.2 F Pulse Rate 86 Respiratory Rate 3 L Blood Pressure 156/90 H Pulse Oximetry 100 Oxygen Delivery Method Nasal Cannula Oxygen Flow Rate 2 Oxygen Delivery Method Nasal Cannula Oxygen Flow Rate 2 Narrative Exam Narrative: GENERAL: This is a well-nourished, well-developed patient, in no apparent distress. HEAD: Atraumatic. Normocephalic. No temporal or scalp tenderness. EYES: Pupils equal round and reactive. Extraocular motions intact. No scleral icterus. No injection or drainage. ENT: Mucous membranes pink and moist. NECK: Trachea midline. No JVD, bruits or lymphadenopathy. Supple, nontender, no meningeal signs. CARDIOVASCULAR: Regular rate and rhythm without murmurs, gallops, or rubs. RESPIRATORY: Clear to auscultation. GASTROINTESTINAL: Abdomen soft, non-tender, nondistended. EXTREMITIES: No clubbing, cyanosis, or edema. BACK: Nontender without deformity or crepitance. No flank tenderness. MUSCULOSKELETAL: Left ankle bandaged/cast in place, appears clean dry and intact. Distal toe tips warm and pink. NEUROLOGIC: Alert, oriented, speech fluent, full upper and lower motor strength, no focal deficits evident. DERMATOLOGIC: No rashes or skin lesions. Objective ECG Impression: Normal sinus rhythm at 83 beats per minute, incomplete left bundle branch block pattern, and no ischemic changes. No comparison available. Imaging left foot xray: Radiologist's impression: Tibiotalar fracture dislocation with lateral displacement of the talus. Chest x-ray: Radiologist's impression: Left basilar atelectasis and or infiltrate Left ankle xray: Radiologist's impression: Tibiotalar fracture dislocation with lateral displacement of the talus Labs 08/02/24 10:00 08/02/24 10:00 Labs: Laboratory Results - last 24 hr 08/02/24 10:00 WBC 10.8 RBC 3.47 L Hgb 11.2 L Hct 33.0 L MCV 95.1 MCH 32.2 MCHC 33.9 RDW 13.4 Plt Count 238 Neut % (Auto) 78.5 H Lymph % (Auto) 11.4 L [place] % (Auto) 9.8 Eos % (Auto) 0.1 L Baso % (Auto) 0.2 Neut # (Auto) 8500 H Lymph # (Auto) 1200 [place] # (Auto) 1100 H Eos # (Auto) 0 Baso # (Auto) 0 Sodium 137 Potassium 4.5 Chloride 106 Carbon Dioxide 19 L BUN 18 Creatinine 0.87 Estimated GFR > 60 BUN/Creatinine Ratio 20.7 Glucose 67 L Calcium 8.7 Total Bilirubin 0.5 AST 54 ALT 28 Alkaline Phosphatase 51 Total Creatine Kinase 633 H Troponin I < 0.012 Total Protein 7.1 Albumin 4.1 Globulin 3.0 Albumin/Globulin Ratio 1.4 Lipase 99 PFSH Social History details: , no children, 1 bottle of wine daily several days weekly household members: none Tobacco & Substance Use Smoking Status: Former smoker Assessment & Plan Assessment & Plan narrative: 1. Left ankle fracture dislocation, the status post ORIF 08/02/2024. Postoperative management per Orthopedics and Physical therapy. 2. Diabetes mellitus, type 2. Continue routine metformin with sliding scale coverage. 3. Diabetic neuropathy. 4. Chronic pain syndrome with chronic opioid use. Continue routine medication. 5. Excessive alcohol use. Monitor for alcohol withdrawal. 6. ADD. Continue routine medication. 7. DVT prophylaxis: Sequential compression devices, enoxaparin 8. Code status: Full code. Plan: -PT/OT consult -continue routine medication -monitor for alcohol withdrawal -diabetic diet, sliding scale insulin coverage -possible discharge tomorrow if doing well, otherwise may require assisted living facility placement versus sniff The patient does not have a surrogate decision maker. Case is reviewed with orthopedics at bedside. He is admitted to observation with possible discharge home tomorrow if doing well, otherwise with considerations as above. The hospitalist service wishes to thank the Orthopedic service for consulting on this delightful patient. Time-Based Coding :: [TOTAL MINUTES] spent with patient and on the chart (including review of chart, obtaining history, exam, reviewing outside data, placing orders, documenting exam and treatment plan, and counseling patient) on [DATE]. PROFEE Charge Codes Inpatient or Observation consultation: [id number]
[2024-08-02] MEDS: LACTATED RINGERS 1,000 ML 100 ML IV (16:04)
--- NOTE | 2024-08-02 16:16 | PC.NURSE ---
Addendum entered by Jade Salinas R.N. 08/02/24 18:04: Pt continues to sleep quietly this evening. Denies any discomfort Call light w/in reach, bed alarm on for pt safety. Continue w/plan of care. Original Note: Pt arrived to [facility] [address]. [place] but awakens easily. VSS; LLE w/ soft cast in place. CMS intact + Denies discomfort at this time. IVF of LR infusing into the LAC at 100cc/hr as per orders Call light w/in reach, pt calls appropriately for needs. Continue w/ plan of post op care.
[2024-08-02] MEDS: DOCUSATE 100 MG CAPSULE PO (20:24)
[2024-08-02] MEDS: SENNOSIDES 8.6 MG TABLET 17.2 MG PO (20:24)
[2024-08-02] MEDS: MORPHINE ER 15 MG TABLET 30 MG PO (20:25)
[2024-08-02] MEDS: buPROPion SR 150 MG TAB PO (20:25)
[2024-08-02] MEDS: INSULIN LISPRO 100 UNIT/ML 3ML VIAL SUBCUT (21:32)
[2024-08-02] MEDS: ACETAMINOPHEN 325 MG TABLET 650 MG PO (21:32)
[2024-08-02] MEDS: HYDROMORPHONE 2 MG TABLET PO (22:28)
[2024-08-03] MEDS: LACTATED RINGERS 1,000 ML 100 ML IV (01:09)
[2024-08-03] MEDS: HYDROMORPHONE 0.5 MG INJ IV (01:13)
[2024-08-03 04:00] VITALS: BP 137/83; PULSE 84; RESP 16; TEMP 36.6; O2SAT 98
[2024-08-03] MEDS: ACETAMINOPHEN 325 MG TABLET 650 MG PO ×2 (04:03→21:08)
[2024-08-03] MEDS: CEFAZOLIN 2 GM/100 ML PREMIX 100 ML IV (04:03)
[2024-08-03] MEDS: HYDROMORPHONE 2 MG TABLET 4 MG PO ×2 (05:01→17:55)
[2024-08-03 06:40] LABS: Add Manual Diff / Slide Review NO; Basophils Absolute Auto 0 /uL (0-100); Basophils Percent Auto 0.4 % (0-2); Eosinophils Absolute Auto 0 /uL (0-450); Hematocrit 29.2 % (41-53); Hemoglobin 9.9 g/dL (13.5-17.5); Lymphocytes Absolute Auto 1000 /uL (1100-4500); Lymphocytes Percent Auto 10.5 % (25-40); Mean Corpuscular HGB Conc 33.7 % (30-36); Mean Corpuscular Hemoglobin 32.1 PG (26-34); Mean Corpuscular Volume 95.2 fL (80-100); Monocytes Absolute Auto 900 /uL (0-900); Monocytes Percent Auto 9.7 % (3-14); Neutrophils Absolute Auto 7400 /uL (1500-7000); Neutrophils Percent Auto 79.4 % (50-75); Platelet Count 188 X10^3/uL (150-400); Red Blood Cell Count 3.07 X10^6/uL (4.5-5.9); Red Cell Distribution Width 13.3 % (11.6-14.8); White Blood Cell Count 9.3 X10^3/uL (4.5-11.0)
[2024-08-03 06:48] LABS: Blood Urea Nitrogen 25 mg/dL (9-20); Calcium 8.2 mg/dL (8.4-10.2); Carbon Dioxide 25 mmol/L (22-32); Chloride 100 mmol/L (98-107); Estimated Glomerular Filt Rate > 60 mL/min (>60); Glucose 143 mg/dL (80-110); HEMOLYSIS < 15 (0-50); Potassium 4.6 mmol/L (3.4-5.1); Sodium 130 mmol/L (137-145)
[2024-08-03 08:00] VITALS: BP 138/76; PULSE 84; RESP 16; TEMP 36.7; O2SAT 98
[2024-08-03] MEDS: ASPIRIN EC 325 MG TABLET PO (08:07)
[2024-08-03 08:08] VITALS: BP 138/76; PULSE 82
[2024-08-03] MEDS: lisinopriL 20 MG TABLET 40 MG PO (08:08)
[2024-08-03] MEDS: buPROPion SR 150 MG TAB PO ×2 (08:08→21:08)
[2024-08-03] MEDS: FLUoxetine 20 MG CAPSULE 40 MG PO (08:08)
[2024-08-03] MEDS: MORPHINE ER 15 MG TABLET 30 MG PO ×2 (08:09→21:08)
[2024-08-03] MEDS: DOCUSATE 100 MG CAPSULE PO ×2 (08:09→21:07)
[2024-08-03] MEDS: METFORMIN HCL 500 MG TABLET 1000 MG PO ×2 (08:20→16:58)
--- NOTE | 2024-08-03 09:06 | PM.PNPO.1 ---
Subjective Subjective Interval history: The patient is a 74-year-old male with a h/o diabetes, diabetic neuropathy, ADD, HTN, and alcohol use disorder. He takes MSO4 ER 30mg BID for chronic pain. He says has been out of this medication and because of that was sleepwalking outside; that is how he sustained this fall and ankle fracture. He had an unsuccessful reduction attempt in the emergency room and the skin was noted to be severely abraded and tenuous. He was indicated for surgical fixation and underwent ORIF of his ankle fracture by Dr Greenfield on 08/02/2024. Review of PDMP shows ER morphine 30mg BID and Adderall 90mg/day as prescribed by Dr Jovan Gao. These have been continued, and hydromorphone has been added for acute post surgical pain. On my visit today, pt is sitting up in chair, watching a program on [email or web address]. He would like to go home w/ HH, but he is aware this might not be possible as he lives alone on the third floor of a building without elevator access. Exam Vital Signs (past 8 hours): - 08/03/24 04:00 08/03/24 08:00 08/03/24 08:08 Temperature 97.9 F 98.1 F Pulse Rate 84 84 82 Respiratory Rate 16 16 Blood Pressure 137/83 138/76 138/76 Pulse Oximetry 98 98 Oxygen Flow Rate 0 0 Oxygen Delivery Method Room Air Oxygen Flow Rate 0 Narrative Exam Narrative: Pt able to wiggle toes, sensation to touch intact above and below splint. No sharp edges or rubbing of splint against the skin. Objective Labs 08/03/24 06:24 08/03/24 06:24 Labs: Laboratory Results - last 24 hr 08/02/24 08/03/24 10:00 06:24 WBC 10.8 9.3 RBC 3.47 L 3.07 L Hgb 11.2 L 9.9 L Hct 33.0 L 29.2 L MCV 95.1 95.2 MCH 32.2 32.1 MCHC 33.9 33.7 RDW 13.4 13.3 Plt Count 238 188 Neut % (Auto) 78.5 H 79.4 H Lymph % (Auto) 11.4 L 10.5 L [place] % (Auto) 9.8 9.7 Eos % (Auto) 0.1 L 0.0 L Baso % (Auto) 0.2 0.4 Neut # (Auto) 8500 H 7400 H Lymph # (Auto) 1200 1000 L [place] # (Auto) 1100 H 900 Eos # (Auto) 0 0 Baso # (Auto) 0 0 Sodium 137 130 L Potassium 4.5 4.6 Chloride 106 100 Carbon Dioxide 19 L 25 BUN 18 25 H Creatinine 0.87 1.00 Estimated GFR > 60 > 60 BUN/Creatinine Ratio 20.7 25.0 H Glucose 67 L 143 H Calcium 8.7 8.2 L Total Bilirubin 0.5 AST 54 ALT 28 Alkaline Phosphatase 51 Total Creatine Kinase 633 H Troponin I < 0.012 Total Protein 7.1 Albumin 4.1 Globulin 3.0 Albumin/Globulin Ratio 1.4 Lipase 99 PFSH Social History details: , no children, 1 bottle of wine daily several days weekly household members: none Smoking Status: Former smoker alcohol intake: current Assessment & Plan Post-op Assessment and plan (1) Fracture dislocation of ankle: Assessment and Plan narrative: 1) PT: 10-12 weeks nonweightbearing in neuropathic patient. 2) DVT prophylaxis with aspirin 325 mg enteric-coated x6 weeks, once daily. 3) Sutures remain in place a minimum of 3 weeks. 4) Pain control in the hospital will be his baseline pain medication plus additional immediate acting pain medication. 5) Appreciate hospitalist help w/ management of DM, HTN, and observation for EtOH withdrawal. 6) Pt will likely need SNF d/t living situation. Will follow for CM recommendations. Postoperative Procedures: Procedures Operation Date: 08/02/24 13:00 Actual Procedure Side Surgeon p ORIF Ankle Fracture Left Angelic Greenfield MD Postoperative day: 1 Quality VTE Deep Vein Thrombosis/Pulmonary Embolism Present on Admission: No
--- NOTE | 2024-08-03 09:23 | PT.IIE ---
Current Diagnoses Type 2 diabetes mellitus with diabetic polyneuropathy (08/02/24) Opioid dependence, uncomplicated (08/02/24) Other fracture of left lower leg, initial encounter for open fracture type I or II (08/02/24) Surgery Performed Operation Date: 08/02/24 13:00 Actual Procedures p ORIF Ankle Fracture(Left) - Angelic Greenfield MD Physical Therapy Inpatient Evaluation/Re-Eval M1 PT/OT-IP Prior Functional Status Start: 08/03/24 08:42 Freq: NEEDED Status: Active Protocol: Document 08/03/24 08:55 MB (Rec: 08/03/24 09:23 MB [id number]) Medical Review Prior Functional Status Medical History Reviewed Yes Diet/Fluid Consistency Regular Communication WNLs Mobility and Gait I Activities of Daily Living and IADL's I Prior Functional Level (Other details) Pt states that he lives alone and he thinks that he was sleep walker d/t withdrawals from not having morphine when he fell Social History Household Members none Living Arrangements Apartment/Condo Number of Stairs To Enter/Railing? 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 M2 PT-IP Current Condition Start: 08/03/24 08:42 Freq: NEEDED Status: Active Protocol: Document 08/03/24 08:55 MB (Rec: 08/03/24 09:23 MB [id number]) Physical Therapy Current Condition Current Condition Evaluation Date 08/03/24 Treatment Diagnosis Fall, left trimalleolar fracture s/p ORIF M3 PT-IP Subjective Start: 08/03/24 08:42 Freq: NEEDED Status: Active Protocol: Document 08/03/24 08:55 MB (Rec: 08/03/24 09:23 MB [id number]) Subjective Physical Therapy Visit Type Type Initial Evaluation Visit Start Time 08:55 Visit Stop Time 09:12 Number of TEXTILE CONSERVATOR Visits 0 Physical Therapy Visit Comments Patient Comments Pt denies pain at rest in bed. Therapy Pain Assessment Pain When Pain Assessed At Rest Pain Present Pain Present Denied Pain M4 PT-IP Mobility and Gait Start: 08/03/24 08:42 Freq: NEEDED Status: Active Protocol: Document 08/03/24 08:55 MB (Rec: 08/03/24 09:23 MB [id number]) PT-Bed Mobility Assessment Rolling Type of Rolling Roll to Left Level of Assist Standby Assistance Supine to Sit Supine to Sit Standby Assistance,1 Person Assistance,Bedrails Scooting Scooting to Edge of Bed Standby Assistance PT-Transfer Assessment Sit to and From Stand Sit to and from Stand Maximum Assistance,1 Person Assistance,Use of Upper Extremities Equipment Transfer Assistive Device Gait Belt,Front Wheeled Walker Orthotic/Prosthetic Devices or Brace: No Transfers Transfer Destination Chair Transfer Technique Short hop step Transfer Ability Level of Assist Maximum Assistance,1 Person Assistance,Use of Upper Extremities Comments Mobility Comments Cues to push up from the bed and cues to hop step and not to try to scoot on right foot Gait Assessment Gait Gait Assistance Required: Maximum Assistance,1 Person Assist Distance (Feet) 1 Able to Maintain Weight Bearing Status Yes During Gait Assistive Devices Assistive Device Gait Belt,Front Wheeled Walker Orthotic/Prosthetic Devices or Brace: No Gait Deviations General Gait Pattern Decreased Stride Length, Decreased Feet Clearance, Flexed Trunk,Narrow Based Gait Factors Limiting Gait Function Factors Limiting Gait Function Decreased Activity Tolerance, Decreased Sensation,Decreased Strength,Difficulty Following Directions,Incoordination, Limited Range of Motion,Poor Balance,Poor Safety Awareness Comments Gait Comments Pt is able to take a few hop steps and then tries to pivot on right foot with left leg nearby and this does not work very well for pt PT-Balance Assessment Sitting Balance and Reactions Static Sitting Balance Ability Good Dynamic Sitting Balance Ability Fair Standing Balance and Reactions Static Standing Balance Ability Fair Dynamic Standing Balance Ability Poor Device Used RW and max A, cues M5 PT-IP Objective Assessments Start: 08/03/24 08:42 Freq: NEEDED Status: Active Protocol: Document 08/03/24 08:55 MB (Rec: 08/03/24 09:23 MB [id number]) Orientation Orientation/Cognition Level of Alertness Alert Orientation Name,Age,Birthday,Year,Place, Situation Language Function Ability No Deficits Noted Safety Awareness Decreased Safety Awareness Memory Description No Deficits Noted Gross Range of Motion Upper Extremity ROM Impairments Defer to OT, no deficits noted with PT Lower Extremity ROM Assessment Left Impaired Impairments L ankle is in soft cast/splint and positioned in neutral DF Strength Lower Extremity Strength Assessment Left Impaired Hip Functional Knee Functional Ankle Ankle in soft cast/splint Coordination Assessment Gross Coordination Gross Coordination Impaired Sensation Assessment Sensation Gross Sensation Right LE Impaired,Left LE Impaired Comments Sensation Comments Pt reports baseline neuropathy and decreased sensation B feet/distal LEs Muscle Tone Muscle Tone WNL Yes M6 PT-IP Treatment Start: 08/03/24 08:42 Freq: NEEDED Status: Active Protocol: Document 08/03/24 08:55 MB (Rec: 08/03/24 09:23 MB [id number]) Physical Therapy Treatment Education Education Provided Weight Bearing Status,Safety M7 PT-IP Assessment and Plan Start: 08/03/24 08:42 Freq: NEEDED Status: Active Protocol: Document 08/03/24 08:55 MB (Rec: 08/03/24 09:23 MB [id number]) PT Summary Assessment and Plan Potential Rehabilitation Potential Good Status of Condition at Evaluation Evolving Summary Impairments ROM,Strength,Balance, Coordination,Sensation,Bed Mobility,Transfers,Gait, Activity Tolerance Progress Towards Goals Progressing Toward Goals Assessment Summary Pt is a gentleman presenting with good bed mobility and requiring max A for transfers and to take a few hop steps to the chair with RW and PT today. Pt reports history of B LE neuropathy and reduced sensation/proprioception in his feet. He lives alone and there are two flights to enter home. He states he does not know if he can manage these and PT ed pt on benefits of SNF at d/c to improve mobility before returning home I. Pt is receptive to education this a.m. Goals Bed Mobility Goal Independent Transfer Goal Standby Assistance,Front Wheeled Walker Gait Goal Standby Assistance,Front Wheel Walker Gait Distance 50 Other Goals Pt will ascend and descend 3 steps with use of rail and no more emilie CGA to practice safe home entrance. Days to Meet Goals 5 Frequency of Treatment Frequency Of Treatment Once a Day Treatment Plan Physical Therapy Treatment Plan Bed Mobility Training,Transfer Training,Gait Training, Therapeutic Exercise,Balance Retraining,Post Op Education, Discharge Planning,Hot or Cold Pack Weight Bearing Status Weight Bearing Status Non-Weight Bearing Allowed Weight Bearing Amount (enter % LLE, 10-12 weeks or #) (%) Recommendations To Nursing Amount of Assist Needed 2 Person Assist Discharge Recommendations PT Discharge Recommendations SNF Rehab Transportation Needs at Discharge Wheelchair/Cabulance
--- NOTE | 2024-08-03 09:28 | PC.NURSE ---
Patient given his morning medications earlier and he is now in the chair after working with physical therapy. He has a splinted cast on with andriy wrap, pp+x2, and cms wnl. Patient is able to wiggle his toes on the left foot and his extremity is warm. He is up in the chair now
[2024-08-03] MEDS: DEXTROAMPHETAMINE AMPHETAMINE 30 MG 60 EACH PO (10:15)
--- NOTE | 2024-08-03 10:35 | PM.PN.1 ---
Subjective Subjective Date Patient Seen: 08/03/24 Time Patient Seen: 09:15 Interval history: 74-year-old man under the primary care of Dr. 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 in his left ankle. He was brought to the emergency department where x-rays reported at tibiotalar fracture dislocation with lateral displacement of the talus. He underwent operative repair by Dr. Angelic Greenfield without incident. This is reportedly an open fracture with a small pinpoint of exposed bone. He is seen in the recovery room relating this history. He has had no recent events otherwise. He is on chronic pain medication for ?pain all over my body? as well as dextroamphetamine for ADD, and takes metformin for diabetes, noting most of his hemoglobin A1cs have been below 7%. He states no cardiac history and no history of lung disease, cancer, recent infectious symptoms. He lives alone in a 3rd floor apartment. He feels that he will be able to manage this with crutches. 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 The patient notes he was sleepwalking when this event occurred, as an incidental note. He does not have a tendency to sleep walking. S: He reports feeling better but very limited. He is concerned he might not be able to walk up 3 flights of stairs to his apartment to be able to manage at home. Blood sugars were up to 243 postoperatively last night and down to 125 this morning. Exam Vital Signs (past 8 hours): - 08/03/24 04:00 08/03/24 08:00 08/03/24 08:08 Temperature 97.9 F 98.1 F Pulse Rate 84 84 82 Respiratory Rate 16 16 Blood Pressure 137/83 138/76 138/76 Pulse Oximetry 98 98 Oxygen Flow Rate 0 0 Oxygen Delivery Method Room Air Oxygen Flow Rate 0 Narrative Exam Narrative: GENERAL: This is a well-nourished, well-developed patient, in no apparent distress. EYES: Pupils equal round and reactive. Extraocular motions intact. No scleral icterus. No injection or drainage. ENT: Mucous membranes pink and moist. NECK: Supple, nontender, no meningeal signs. CARDIOVASCULAR: Regular rate and rhythm without murmurs, gallops, or rubs. RESPIRATORY: Clear to auscultation. GASTROINTESTINAL: Abdomen soft, non-tender, nondistended. EXTREMITIES: No clubbing, cyanosis, or edema. MUSCULOSKELETAL: Left ankle bandage/cast in place, appears clean dry and intact. Distal toe tips warm and pink, sensation intact to light touch. NEUROLOGIC: Alert, oriented, speech fluent, full upper and lower motor strength, no focal deficits evident. DERMATOLOGIC: No rashes or skin lesions. Objective Labs 08/03/24 06:24 08/03/24 06:24 Labs: Laboratory Results - last 24 hr 08/02/24 08/03/24 10:00 06:24 WBC 9.3 RBC 3.07 L Hgb 9.9 L Hct 29.2 L MCV 95.2 MCH 32.1 MCHC 33.7 RDW 13.3 Plt Count 188 Neut % (Auto) 79.4 H Lymph % (Auto) 10.5 L [place] % (Auto) 9.7 Eos % (Auto) 0.0 L Baso % (Auto) 0.4 Neut # (Auto) 7400 H Lymph # (Auto) 1000 L [place] # (Auto) 900 Eos # (Auto) 0 Baso # (Auto) 0 Sodium 130 L Potassium 4.6 Chloride 100 Carbon Dioxide 25 BUN 25 H Creatinine 1.00 Estimated GFR > 60 BUN/Creatinine Ratio 25.0 H Glucose 143 H Calcium 8.2 L Troponin I < 0.012 [facility] Social History details: , no children, 1 bottle of wine daily several days weekly household members: none Smoking Status: Former smoker alcohol intake: current Assessment & Plan Assessment & Plan narrative: 1. Left ankle fracture dislocation, the status post ORIF 08/02/2024. Postoperative management per Orthopedics and Physical therapy. 2. Diabetes mellitus, type 2. Continue routine metformin with sliding scale coverage. 3. Diabetic neuropathy, with gait instability. High risk for falling. 4. Chronic pain syndrome with chronic opioid use. Continue routine medication. 5. Excessive alcohol use. Monitor for alcohol withdrawal. 6. ADD. Continue routine medication. 7. DVT prophylaxis: Sequential compression devices, enoxaparin 8. Code status: Full code. Plan: -PT/OT consult -continue routine medication -monitor for alcohol withdrawal, no evidence to date -diabetic diet, sliding scale insulin coverage, check hemoglobin A1c -enoxaparin DVT prophylaxis -likely SNF versus assisted living facility placement The patient does not have a surrogate decision maker. Case is reviewed in team rounds with physical therapy, nursing, social work and discharge planning. He is unlikely to be able to discharge home given that he will need to navigate to a 3rd story apartment. Anticipate shelter facility placement. He is admitted to inpatient status. Quality VTE Deep Vein Thrombosis/Pulmonary Embolism Present on Admission: No [facility] PROFEE Charge codes Subsequent inpatient/observation care: [id number]
[2024-08-03 10:58] LABS: Hemoglobin A1C% w Est Avg Glu 5.7 % (4.0-6.0)
[2024-08-03 11:54] VITALS: O2SAT 96
[2024-08-03] MEDS: DEXTROAMPHETAMINE AMPHETAMINE 30 MG 30 EACH PO (13:24)
--- NOTE | 2024-08-03 13:24 | CM.DANOTE ---
Initial DCP Assessment Visit Note Reviewed EMR and team rounds for status updates. Met with pt at bedside to introduce self and role, pt was found to be alert/oriented, and sitting upright in the recliner. Pt resides alone in his own apartment on the 3rd floor in [place]. He does have a very good friend who will plan to assist him in transition home at time of d/c. Payor: Medicare Attending: Dr. Greenfield Pt is a 74 year-old M with a PMH of diabetes w/neuropathy, hypertension, and chronic pain. He's been on prescribed morphine for several years for chronic pain management, and had run out. There was a delay in getting his refill, so he states that he was starting to go into withdrawls, started sleepwalking, and that's how he fell in his apartment, resulting in an open fracture of his L-ankle. Ortho/Dr. Greenfield consulted, and agreed to take pt to the OR (yesterday) and completed on open reduction internal fixation surgery. Per PT, SNF is being recommended. Also pt can use crutches, the concern is his ability to get himself up 2-flights of stairs. Pt states that he would not want to go to SNF, and prefers a plan to d/c home with Home Health, and assistance in getting up the stairs when he initially gets home. He shares that his friend can assist with shopping or support needs. Will need to make appropriate referrals once PT/OT makes their final recommendations. He would be eligible for SNF on 08/05. DCP will continue to follow and assist with d/c transition to final disposition. Discharge Planning/Care Management CM Discharge Assessment Start: 08/03/24 13:21 Freq: Status: Active Protocol: Document 08/03/24 13:21 DPL (Rec: 08/03/24 13:24 DPL [id number]) Discharge Planning Assessment Assigned Home Appliances Mechanic MARIE Warner Advance Directives? No History Provided By Patient,Medical Record Has Patient been admitted in last 30 No days? Prior Living Arrangements Apartment/Condo Household Members none Type of transporation used prior to Drives own vehicle admit Independent with ADL's Yes Is patient alert and oriented? Yes Caregiver for Another No Comment N/A Patient/Family Preference Shelter Facility,Home with Home Health Comment Pending his ability to improve or not with therapies. Pt does not want to go to SNF, and prefers to d/c home w/HH. Barriers to Discharge Yes Comment Pt has 2-long flights of stairs to get to his 3rd floor apartment, and lives alone. Discharge Plan Home Community Services Physical Therapy,Occupational Therapy Transportation Arrangement Facility if SNF, friend if home. Additional Comment Pending. Whiteboard Updated in Patient Room with Yes name and ext. # of Home Appliances Mechanic Review Status In Process Please Provide Date Initial DC 08/03/24 Assessment Was Performed
[2024-08-03 16:00] VITALS: BP 137/76; PULSE 94; RESP 21; TEMP 36.6; O2SAT 98
[2024-08-03] MEDS: INSULIN LISPRO 100 UNIT/ML 3ML VIAL SUBCUT (17:11)
[2024-08-03 20:15] VITALS: BP 142/66; PULSE 96; RESP 16; TEMP 36.3; O2SAT 97
[2024-08-03] MEDS: SENNOSIDES 8.6 MG TABLET 17.2 MG PO (21:08)
[2024-08-03] MEDS: HYDROMORPHONE 2 MG TABLET PO (23:05)
[2024-08-04 04:00] VITALS: BP 139/75; PULSE 90; RESP 15; TEMP 36.3; O2SAT 97
[2024-08-04] MEDS: HYDROMORPHONE 2 MG TABLET 4 MG PO (06:01)
--- NOTE | 2024-08-04 06:31 | PM.PNPO.1 ---
Subjective Subjective Date Patient Seen: 08/04/24 Time Patient Seen: 07:10 Interval history: The patient is a 74-year-old male with a h/o diabetes, diabetic neuropathy, ADD, HTN, and alcohol use disorder. He takes MSO4 ER 30mg BID for chronic pain. He says has been out of this medication and because of that was sleepwalking outside; that is how he sustained this fall and ankle fracture. He had an unsuccessful reduction attempt in the emergency room and the skin was noted to be severely abraded and tenuous. He was indicated for surgical fixation and underwent ORIF of his ankle fracture by Dr Greenfield on 08/02/2024. Review of PDMP shows ER morphine 30mg BID and Adderall 90mg/day as prescribed by Dr Jovan Gao. These have been continued, and hydromorphone has been added for acute post surgical pain. In review of his MAR, he has required very little hydromorphone. On my visit this morning, he c/o discomfort, especially when asked to wiggle his toes. In terms of disposition, he tells me today that there is a first-floor unit available in his building; I encouraged him to call the contractor general building today to see if it might be possible for him to move to this unit from his current 3rd floor space. He asked me if he can try crutches instead of a walker, and I advised him to discuss this w/ PT. He will need to be nonweightbearing 10-12 weeks, so he will likely need a wheelchair as well. Exam Vital Signs (past 8 hours): - 08/04/24 04:00 Temperature 97.4 F L Pulse Rate 90 Respiratory Rate 15 Blood Pressure 139/75 Pulse Oximetry 97 Oxygen Flow Rate 0 Oxygen Delivery Method Room Air Oxygen Flow Rate 0 Narrative Exam Narrative: Pt able to wiggle toes, flex and extend at knee. Sensation to touch intact above and below well-padded splint. No sharp edges or rubbing against skin is appreciated. Objective Labs 08/03/24 06:24 08/03/24 06:24 Labs: Laboratory Results - last 24 hr 08/03/24 06:24 WBC 9.3 RBC 3.07 L Hgb 9.9 L Hct 29.2 L MCV 95.2 MCH 32.1 MCHC 33.7 RDW 13.3 Plt Count 188 Neut % (Auto) 79.4 H Lymph % (Auto) 10.5 L [place] % (Auto) 9.7 Eos % (Auto) 0.0 L Baso % (Auto) 0.4 Neut # (Auto) 7400 H Lymph # (Auto) 1000 L [place] # (Auto) 900 Eos # (Auto) 0 Baso # (Auto) 0 Sodium 130 L Potassium 4.6 Chloride 100 Carbon Dioxide 25 BUN 25 H Creatinine 1.00 Estimated GFR > 60 BUN/Creatinine Ratio 25.0 H Glucose 143 H Hemoglobin A1c 5.7 Calcium 8.2 L PFSH Social History details: , no children, 1 bottle of wine daily several days weekly household members: none Smoking Status: Former smoker alcohol intake: current Assessment & Plan Post-op Assessment and plan (1) Fracture dislocation of ankle: Assessment and Plan narrative: 1) PT: 10-12 weeks nonweightbearing in neuropathic patient. 2) DVT prophylaxis with aspirin 325 mg enteric-coated x6 weeks, once daily. 3) Sutures remain in place a minimum of 3 weeks. 4) Pain control in the hospital will be his baseline pain medication plus additional immediate acting pain medication. 5) Appreciate hospitalist help w/ management of DM, HTN, and observation for EtOH withdrawal. 6) SNF vs home w/ HH d/t living situation. Per CM, pt eligible for SNF on 08/05. Will follow for PT and CM recommendations. Postoperative Procedures: Procedures Operation Date: 08/02/24 13:00 Actual Procedure Side Surgeon p ORIF Ankle Fracture Left Angelic Greenfield MD Postoperative day: 2 Quality VTE Deep Vein Thrombosis/Pulmonary Embolism Present on Admission: No
--- NOTE | 2024-08-04 07:39 | P.PN_ITS ---
Subjective Subjective Interval history: S: Pain controlled, he is on morphine 30 mg BID. No nausea, or abdomen pain. Exam Vital Signs (past 8 hours): - 08/04/24 04:00 Temperature 97.4 F L Pulse Rate 90 Respiratory Rate 15 Blood Pressure 139/75 Pulse Oximetry 97 Oxygen Flow Rate 0 Oxygen Delivery Method Room Air Oxygen Flow Rate 0 Narrative Exam Narrative: NAD, alert and oriented. Fluent speech. Lungs are clear, normal rate and effort. Heart is regular, no murmur gallop or rub. Abdomen is soft, non distended. Extremities are free of edema. Left leg is splinted. Good toe movement. Objective Labs 08/03/24 06:24 08/03/24 06:24 Labs: Laboratory Results - last 24 hr 08/03/24 06:24 Hemoglobin A1c 5.7 PFSH Social History details: , no children, 1 bottle of wine daily several days weekly household members: none Smoking Status: Former smoker alcohol intake: current Assessment & Plan Assessment & Plan narrative: 1. Left ankle fracture dislocation, the status post ORIF 08/02/2024. Postoperative management per Orthopedics and Physical therapy. 2. Diabetes mellitus, type 2. Continue routine metformin with sliding scale coverage. 3. Diabetic neuropathy, with gait instability. High risk for falling. 4. Chronic pain syndrome with chronic opioid use. Continue routine medication. 5. Excessive alcohol use. Monitor for alcohol withdrawal. 6. ADD. Continue routine medication. 7. DVT prophylaxis: Sequential compression devices, enoxaparin 8. Code status: Full code. Plan: -PT/OT consult -continue routine medication -monitor for alcohol withdrawal, remains stable. -diabetic diet, sliding scale insulin coverage, check hemoglobin A1c Enoxaparin DVT prophylaxis SNF versus assisted living facility placement The patient does not have a surrogate decision maker. Case is reviewed in team rounds with physical therapy, nursing, social work and discharge planning. He is unlikely to be able to discharge home given that he will need to navigate to a 3rd story apartment. Anticipate long-term facility placement. He is admitted to inpatient status. Time-Based Coding :: [TOTAL MINUTES] spent with patient and on the chart (including review of chart, obtaining history, exam, reviewing outside data, placing orders, documenting exam and treatment plan, and counseling patient) on [DATE]. Quality VTE Deep Vein Thrombosis/Pulmonary Embolism Present on Admission: No
[2024-08-04 08:00] VITALS: BP 133/75; PULSE 100; RESP 15; TEMP 37; O2SAT 100
[2024-08-04] MEDS: METFORMIN HCL 500 MG TABLET 1000 MG PO ×2 (09:10→17:39)
[2024-08-04] MEDS: ASPIRIN EC 325 MG TABLET PO (09:10)
[2024-08-04] MEDS: lisinopriL 20 MG TABLET 40 MG PO (09:11)
[2024-08-04] MEDS: MORPHINE ER 15 MG TABLET 30 MG PO ×2 (09:11→20:21)
[2024-08-04] MEDS: DEXTROAMPHETAMINE AMPHETAMINE 30 MG 60 EACH PO (09:11)
[2024-08-04] MEDS: DOCUSATE 100 MG CAPSULE PO ×2 (09:11→20:21)
[2024-08-04] MEDS: buPROPion SR 150 MG TAB PO ×2 (09:11→20:21)
[2024-08-04] MEDS: polyethylene glycoL 3350 17 GM POWD.PACK PO (09:11)
[2024-08-04] MEDS: FLUoxetine 20 MG CAPSULE 40 MG PO (09:11)
--- NOTE | 2024-08-04 11:11 | PC.NURSE ---
Patient is resting comfortably, he was given his medication and morphine and his splinted soft cast is wnl. PPx2 to l.lower extremity.
[2024-08-04] MEDS: DEXTROAMPHETAMINE AMPHETAMINE 30 MG 30 EACH PO (12:26)
[2024-08-04] MEDS: HYDROMORPHONE 2 MG TABLET PO (13:37)
--- NOTE | 2024-08-04 13:55 | OT.IP.EVAL ---
Current Diagnoses Type 2 diabetes mellitus with diabetic polyneuropathy (08/02/24) Opioid dependence, uncomplicated (08/02/24) Other fracture of left lower leg, initial encounter for open fracture type I or II (08/02/24) Surgery Performed Operation Date: 08/02/24 13:00 Actual Procedures p ORIF Ankle Fracture(Left) - Angelic Greenfield MD Occupational Therapy Inpatient Evaluation/Re-Eval M1 PT/OT-IP Prior Functional Status Start: 08/03/24 08:42 Freq: NEEDED Status: Active Protocol: Document 08/04/24 14:01 CGR (Rec: 08/04/24 14:14 CGR [id number]) Medical Review Prior Functional Status Medical History Reviewed Yes Diet/Fluid Consistency Regular Communication WNLs Mobility and Gait Ind at baseline without AD Activities of Daily Living and IADL's Ind for all ADLs and IADLs Prior Functional Level (Other details) Pt states that he lives alone and he thinks that he was sleep walker d/t withdrawals from not having morphine when he fell Social History Household Members none Living Arrangements Apartment/Condo Number of Floors (Floors) 3 or More Floors Number of Stairs To Enter/Railing? Pt lives on the 3rd floor of an apt building and has to go up 2 flights of stairs to get to his apartment. Home Environment Standard Height Toilet,Tub/ Shower Employment Status Retired M2 OT-IP Current Condition Start: 08/04/24 14:00 Freq: Status: Active Protocol: Document 08/04/24 14:01 CGR (Rec: 08/04/24 14:14 CGR [id number]) Occupational Therapy Current Condition Current Condition Evaluation Date 08/04/24 Treatment Diagnosis fall with L ankle fx, s/p ORIF Diagnosis Onset Date 08/01/24 Weight Bearing Status Weight Bearing Status Non-Weight Bearing M3 OT- IP Subjective and Pain Start: 08/04/24 14:00 Freq: Status: Active Protocol: Document 08/04/24 14:01 CGR (Rec: 08/04/24 14:14 CGR [id number]) OT- Subjective Occupational Therapy Visit Type Type Initial Evaluation Visit Start Time 13:31 Visit Stop Time 13:55 Notes Partial co-treat with P.T. OT Pain Assessment Pain When Pain Assessed At Rest Pain Present Pain Present Pain Reported Location left ankle Intensity 4 Scale Used Numeric (0 - 10) Management Techniques Distraction,Modification of Treatment,Re-positioning, Timing of Activity with Medications M4 OT- IP ADL's Start: 08/04/24 14:00 Freq: Status: Active Protocol: Document 08/04/24 14:01 CGR (Rec: 08/04/24 14:14 CGR [id number]) OT [id number] Comments OT Self-Feeding Comments not meal time OT ADL-Grooming Comments OT Grooming Comments pt declined, performed this AM OT ADL-Oral Care Comments Oral Care Comments pt declined, performed this AM OT ADL-Dressing General Eval Lower Body Dressing Ability Independent Areas Needing Assistance Socks Comments OT Dressing Comments seated EOB OT ADL-Toileting Comments OT Toileting Comments not performed OT ADL-Bathing Comments OT Bathing Comments not performed M5 OT- IP IADL's Start: 08/04/24 14:00 Freq: Status: Active Protocol: Document 08/04/24 14:01 CGR (Rec: 08/04/24 14:14 CGR [id number]) OT-Instrumental Activities of Daily Living Deficits IADL Deficits Identified No Deficits Home Safety Awareness Awareness of Need for Assistance at Home Good Awareness Ability to Problem Solve Emergency Able to Problem Solve Situations Medication Management Medication Management No Deficits Identified Money Management Money Management No Deficits Identified Meal Preparation Meal Preparation No Deficits Identified Taxation Accountant Taxation Accountant No Deficits Identified Driving Driving Comments 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 OT- IP Functional Cognition Start: 08/04/24 14:00 Freq: Status: Active Protocol: Document 08/04/24 14:01 CGR (Rec: 08/04/24 14:14 CGR [id number]) Cognitive Factors Limiting Selfcare Function Cognitive Ability Level of Alertness Alert Patient Orientation Name,Age,Birthday,Month,Date, Year,Day of Week,Place, Situation Attention Span Ability Capable of Focused Attention, Capable of Sustained Attention OT- Vision and Hearing OT- Hearing Assessment OT- Hearing Assessment WFL OT- Vision Assessment Vision History Cataracts Visual Acuity Glasses For Reading Visual Attentiveness WFL Occular Pursuits WFL Vision Assessment Comments hx of cateract sx M7 OT- IP Mobility and Balance Start: 08/04/24 14:00 Freq: Status: Active Protocol: Document 08/04/24 14:01 CGR (Rec: 08/04/24 14:14 CGR [id number]) OT- Bed Mobility Assessment Supine to Sit Supine to Sit Assist Independent Scooting Scooting to Edge of Bed Standby Assistance OT-Transfer Assessment Sit to and From Stand Sit to and from Stand Contact Guard Assistance, Minimal Assistance Transfers Transfer Ability Contact Guard Assistance, Minimal Assistance Technique Transfer Destination Bed,Chair,Wheelchair Transfer Technique R foot hop Devices Transfer Assistive Devices Gait Belt,Front Wheeled Walker Comments Mobility Comments Pt transfered from bed to w/c outside door with fatigue noted. Pt attempted to stand from w/c with crutches but was unable. Pt then wheeled to the stairs where pt attempted hoping for stair mobility but was unable to perform with max x 2 and returned to sitting in chair after attempt. Pt wheeled back to room then transfered to chair wtih min a . OT- Gait Assessment Comments Gait Ability Comments see above notes OT- Balance Assessment Sitting Balance and Reactions Static Sitting Balance Ability Good Dynamic Sitting Balance Ability Good M8 OT- IP Objective Assessments Start: 08/04/24 14:00 Freq: Status: Active Protocol: Document 08/04/24 14:01 CGR (Rec: 08/04/24 14:14 CGR [id number]) OT Gross Range of Motion Upper Extremity Range of Motion Assessment Within Functional Limits OT Strength Upper Extremity Strength Assessment Within Functional Limits Comments Strength Comments grossly 5/5 OT- Coordination Assessment Upper Extremity Finger to Nose Test Within Functional Limits Finger Tapping Test Within Functional Limits OT-Muscle Tone Assessment Muscle Tone WNL Yes OT Sensation Assessment Edema Edema Absent M9 OT- IP Assessment and Plan Start: 08/04/24 14:00 Freq: Status: Active Protocol: Document 08/04/24 14:01 CGR (Rec: 08/04/24 14:14 CGR [id number]) OT Summary Assessment and Plan Potential Rehabilitation Potential Good Analytic Complexity at Evaluation Moderate Summary OT Impairments Pain,Balance,Functional Mobility,Self-Feeding,Grooming ,Toileting,Bathing,Toilet Transfers,Shower Transfers, Activity Tolerance Progress Towards Goals Progressing Toward Goals Assessment Summary Pt presents as a moderate complexity evaluation s/p admit for fall with L ankle fx . Pt underwent ORIF and is now NWB. Pt is able to perform sit to stand and take some steps with min a, walker and instruction but fatigues quickly. Pt will benefit from SNF as pt is currently needing min a for limited mobility and pt has 2 flights of stairs up to his apartment. Goals Grooming Goal Independent Toileting Goal Independent Bathing Goal Independent Toilet Transfer Goal Independent Shower Transfer Goal Independent Days to Meet Goals 30 Frequency of Treatment Other frequency 5x per week Treatment Plan OT Treatment Plan ADL Training,Functional Mobility,Therapeutic Exercises ,Patient/Family Education, Discharge Planning Other Treatment Recommendations and Next Up to bathroom Treatment Focus Discharge Recommendations OT Discharge Recommendations SNF Rehab Transportation Needs at Discharge Wheelchair/Cabulance
--- NOTE | 2024-08-04 14:11 | PT.IPTN ---
Current Diagnoses Type 2 diabetes mellitus with diabetic polyneuropathy (08/02/24) Opioid dependence, uncomplicated (08/02/24) Other fracture of left lower leg, initial encounter for open fracture type I or II (08/02/24) Surgery Performed Operation Date: 08/02/24 13:00 Actual Procedures p ORIF Ankle Fracture(Left) - Angelic Greenfield MD Physical Therapy Treatment Note M2 PT-IP Current Condition Start: 08/03/24 08:42 Freq: NEEDED Status: Active Protocol: Document 08/03/24 08:55 MB (Rec: 08/03/24 09:23 MB [id number]) Physical Therapy Current Condition Current Condition Evaluation Date 08/03/24 Treatment Diagnosis Fall, left trimalleolar fracture s/p ORIF M3 PT-IP Subjective Start: 08/03/24 08:42 Freq: NEEDED Status: Active Protocol: Document 08/04/24 13:30 MB (Rec: 08/04/24 14:11 MB [id number]) Subjective Physical Therapy Visit Type Type Treatment Note Visit Start Time 13:30 Visit Stop Time 13:55 Number of VAT [employer] Visits 0 Physical Therapy Visit Comments Patient Comments Pt states that he wants to try the crutches. Therapy Pain Assessment Pain When Pain Assessed At Rest Pain Present Pain Present Pain Reported Location left ankle Intensity 4 Scale Used Numeric (0 - 10) M4 PT-IP Mobility and Gait Start: 08/03/24 08:42 Freq: NEEDED Status: Active Protocol: Document 08/04/24 13:30 MB (Rec: 08/04/24 14:11 MB [id number]) PT-Bed Mobility Assessment Supine to Sit Supine to Sit Independent Scooting Scooting to Edge of Bed Standby Assistance PT-Transfer Assessment Sit to and From Stand Sit to and from Stand Contact Guard Assistance, Minimal Assistance,1 Person Assistance,Use of Upper Extremities Equipment Transfer Assistive Device Gait Belt,Front Wheeled Walker Orthotic/Prosthetic Devices or Brace: No Transfers Transfer Destination Chair,Wheelchair Transfer Technique Hop stepping Transfer Ability Level of Assist Contact Guard Assistance, Minimal Assistance,1 Person Assistance,Use of Upper Extremities Comments Mobility Comments Pt with increased fatigue with increasing activity and he requires increased assistance for safe transfers with the fatigue and cues for backing up and for hand placement, making sure right leg is touching w/c and chair. Attempted use of crutches with cues for STS and pt states that he cannot do it as far as coordination and arm strength Gait Assessment Gait Gait Assistance Required: Minimum Assistance,1 Person Assist Distance (Feet) 25 Able to Maintain Weight Bearing Status Yes During Gait Assistive Devices Assistive Device Gait Belt,Front Wheeled Walker Orthotic/Prosthetic Devices or Brace: No Gait Deviations General Gait Pattern Decreased Stride Length, Decreased Feet Clearance, Flexed Trunk,Narrow Based Gait Factors Limiting Gait Function Factors Limiting Gait Function Decreased Activity Tolerance, Decreased Sensation,Decreased Strength,Difficulty Following Directions,Incoordination, Limited Range of Motion,Poor Balance,Poor Safety Awareness Comments Gait Comments Hop steps around bed and to w/ c out into the hallway with cues for how to push walker and push through arms and then use arms to gently hop forward on right foot and keep left leg bent. Pt has trouble with coordinating this despite ed, demo and multiple trials today: 25' around bed to w/c and grossly 3'x2 and 1' x1 to w/c and chair Stair Climbing Assessment Comments Stair Climbing Comments Demo'd hop gait with both hands on left rail ascend, person sideways and hop up with right foot first and pt is unable to unable to try even one step despite +2 max A d/t right leg buckling, weakness, fatigue and inability to perform PT-Balance Assessment Sitting Balance and Reactions Static Sitting Balance Ability Good Dynamic Sitting Balance Ability Poor Standing Balance and Reactions Static Standing Balance Ability Fair Dynamic Standing Balance Ability Fair Device Used RW, assistance and cues M5 PT-IP Objective Assessments Start: 08/03/24 08:42 Freq: NEEDED Status: Active Protocol: Document 08/03/24 08:55 MB (Rec: 08/03/24 09:23 MB [id number]) Orientation Orientation/Cognition Level of Alertness Alert Orientation Name,Age,Birthday,Year,Place, Situation Language Function Ability No Deficits Noted Safety Awareness Decreased Safety Awareness Memory Description No Deficits Noted Gross Range of Motion Upper Extremity ROM Impairments Defer to OT, no deficits noted with PT Lower Extremity ROM Assessment Left Impaired Impairments L ankle is in soft cast/splint and positioned in neutral DF Strength Lower Extremity Strength Assessment Left Impaired Hip Functional Knee Functional Ankle Ankle in soft cast/splint Coordination Assessment Gross Coordination Gross Coordination Impaired Sensation Assessment Sensation Gross Sensation Right LE Impaired,Left LE Impaired Comments Sensation Comments Pt reports baseline neuropathy and decreased sensation B feet/distal LEs Muscle Tone Muscle Tone WNL Yes M6 PT-IP Treatment Start: 08/03/24 08:42 Freq: NEEDED Status: Active Protocol: Document 08/04/24 13:30 MB (Rec: 08/04/24 14:11 MB [id number]) Physical Therapy Treatment Education Education Provided Weight Bearing Status,Safety M7 PT-IP Assessment and Plan Start: 08/03/24 08:42 Freq: NEEDED Status: Active Protocol: Document 08/04/24 13:30 MB (Rec: 08/04/24 14:11 MB [id number]) PT Summary Assessment and Plan Potential Rehabilitation Potential Good Status of Condition at Evaluation Evolving Summary Impairments ROM,Strength,Balance, Coordination,Sensation,Bed Mobility,Transfers,Gait, Activity Tolerance Progress Towards Goals Progressing Toward Goals Assessment Summary Pt is able to NWB hop gait further with RW today. He is unable to advance to crutches and PT ed pt that use of RW is much safer and requires less work. He is unable to progress to stair training despite +2 max A today. He presents with poor body awareness and recall of training and he fatigues quickly. Recommend SNF at d/c. Goals Bed Mobility Goal Independent Transfer Goal Standby Assistance,Front Wheeled Walker Gait Goal Standby Assistance,Front Wheel Walker Gait Distance 50 Other Goals Pt will ascend and descend 3 steps with use of rail and no more emilie CGA to practice safe home entrance. Days to Meet Goals 5 Frequency of Treatment Frequency Of Treatment Once a Day Treatment Plan Physical Therapy Treatment Plan Bed Mobility Training,Transfer Training,Gait Training, Therapeutic Exercise,Balance Retraining,Post Op Education, Discharge Planning,Hot or Cold Pack Weight Bearing Status Weight Bearing Status Non-Weight Bearing Allowed Weight Bearing Amount (enter % LLE, 10-12 weeks or #) (%) Recommendations To Nursing Amount of Assist Needed 2 Person Assist Discharge Recommendations PT Discharge Recommendations SNF Rehab Transportation Needs at Discharge Wheelchair/Cabulance
--- NOTE | 2024-08-04 14:30 | CM.DPC ---
DCP SNF Planning: Per Ortho, pt making progress and tolerated his surgery well and to work with PT/OT today to determine discharge needs. Per PT/OT, pt unable to ambulate with crutches or FWW and buckled when attempting stairs and still recommending SNF at d/c. SW met bedside with pt and explained role and discussed SNF recommendation and he confirms he feels SNF needed at d/c before safely going home to his apt and managing stairs. Discussed MCR coverage at SNF and provided the SNF Choice list and preference is [facility], and [facility]. Pt plans to call his friend to determine preference between these 3 and agreeable with SW making referrals to these 3 SNFs to confirm bed availability. SW made referral to [facility] and [facility] done but needs Hospitalist signature for [facility] discharge for anxiety and depression. Plan: SW to follow closely with [facility] to determine bed availability and which can accept for plan of SNF at d/c before return home. MARIE Kwan
[2024-08-04] MEDS: ACETAMINOPHEN 325 MG TABLET 650 MG PO ×2 (15:39→22:13)
[2024-08-04 16:00] VITALS: BP 135/72; PULSE 102; RESP 12; TEMP 36.3; O2SAT 99
[2024-08-04 20:00] VITALS: BP 111/66; PULSE 91; RESP 18; TEMP 36.1; O2SAT 98
[2024-08-04] MEDS: SENNOSIDES 8.6 MG TABLET 17.2 MG PO (20:22)
[2024-08-05] MEDS: HYDROMORPHONE 2 MG TABLET PO ×3 (00:42→22:55)
[2024-08-05 03:59] VITALS: BP 122/80; PULSE 74; RESP 18; TEMP 37.1; O2SAT 96
--- NOTE | 2024-08-05 07:19 | PM.PN.1 ---
Subjective Subjective Interval history: S: Good pain control today. He does acknowledge how weak he was become. He almost had a fall while going to the bathroom this morning. He was satisfied with the pain control, he did sleep poorly last night. Exam Vital Signs (past 8 hours): - 08/05/24 03:59 Temperature 98.8 F Pulse Rate 74 Respiratory Rate 18 Blood Pressure 122/80 Pulse Oximetry 96 Oxygen Flow Rate 0 Oxygen Delivery Method Room Air Oxygen Flow Rate 0 Narrative Exam Narrative: NAD, alert and oriented. Fluent speech. Lungs are clear, normal rate and effort. Heart is regular, no murmur gallop or rub. Abdomen is soft, non distended. Extremities are free of edema. Left lower extremity is splinted. Good cap refill of toes. Objective Labs 08/05/24 08:12 08/03/24 06:24 PFS Social History details: , no children, 1 bottle of wine daily several days weekly household members: none Smoking Status: Former smoker alcohol intake: current Assessment & Plan Assessment & Plan narrative: 1. Left ankle fracture dislocation, the status post ORIF 08/02/2024. Postoperative management per Orthopedics and Physical therapy. 2. Diabetes mellitus, type 2. Continue routine metformin with sliding scale coverage. 3. Diabetic neuropathy, with gait instability. High risk for falling. 4. Chronic pain syndrome with chronic opioid use. Continue routine medication. 5. Excessive alcohol use. Monitor for alcohol withdrawal. 6. ADD. Continue routine medication. 7. DVT prophylaxis: Sequential compression devices, enoxaparin 8. Code status: Full code. Plan: -he was accepted at care home facility tomorrow, August 06. -continue DVT prophylaxis and current pain medications. Enoxaparin DVT prophylaxis, we will change to aspirin [facility] on August 06. Time-Based Coding :: [TOTAL MINUTES] spent with patient and on the chart (including review of chart, obtaining history, exam, reviewing outside data, placing orders, documenting exam and treatment plan, and counseling patient) on [DATE]. Quality VTE Deep Vein Thrombosis/Pulmonary Embolism Present on Admission: No
[2024-08-05 08:00] VITALS: BP 122/64; PULSE 92; RESP 18; TEMP 36.6; O2SAT 98
[2024-08-05 08:26] VITALS: BP 122/64; PULSE 92
[2024-08-05] MEDS: METFORMIN HCL 500 MG TABLET 1000 MG PO ×2 (08:26→17:34)
[2024-08-05] MEDS: MORPHINE ER 15 MG TABLET 30 MG PO ×2 (08:26→20:31)
[2024-08-05] MEDS: lisinopriL 20 MG TABLET 40 MG PO (08:26)
[2024-08-05] MEDS: FLUoxetine 20 MG CAPSULE 40 MG PO (08:30)
[2024-08-05] MEDS: buPROPion SR 150 MG TAB PO ×2 (08:30→20:32)
[2024-08-05] MEDS: ASPIRIN EC 325 MG TABLET PO (08:30)
[2024-08-05 08:32] LABS: Hematocrit 30.5 % (41-53); Hemoglobin 10.3 g/dL (13.5-17.5)
[2024-08-05] MEDS: ACETAMINOPHEN 325 MG TABLET 650 MG PO ×3 (08:42→20:32)
--- NOTE | 2024-08-05 09:00 | PT.IPTN ---
Current Diagnoses Type 2 diabetes mellitus with diabetic polyneuropathy (08/02/24) Opioid dependence, uncomplicated (08/02/24) Other fracture of left lower leg, initial encounter for open fracture type I or II (08/02/24) Surgery Performed Operation Date: 08/02/24 13:00 Actual Procedures p ORIF Ankle Fracture(Left) - Angelic Greenfield MD Physical Therapy Treatment Note M2 PT-IP Current Condition Start: 08/03/24 08:42 Freq: NEEDED Status: Active Protocol: Document 08/03/24 08:55 MB (Rec: 08/03/24 09:23 MB [id number]) Physical Therapy Current Condition Current Condition Evaluation Date 08/03/24 Treatment Diagnosis Fall, left trimalleolar fracture s/p ORIF M3 PT-IP Subjective Start: 08/03/24 08:42 Freq: NEEDED Status: Active Protocol: Document 08/05/24 09:33 TS (Rec: 08/05/24 09:42 TS [id number]) Subjective Physical Therapy Visit Type Type Treatment Note Visit Start Time 09:00 Visit Stop Time 09:24 Number of BOX SPINNER Visits 1 Physical Therapy Visit Comments Patient Comments Pt found resting in the bed, would like to get up to use restroom. Therapy Pain Assessment Pain When Pain Assessed At Rest Pain Present Pain Present Pain Reported M4 PT-IP Mobility and Gait Start: 08/03/24 08:42 Freq: NEEDED Status: Active Protocol: Document 08/05/24 09:33 TS (Rec: 08/05/24 09:42 TS [id number]) PT-Bed Mobility Assessment Supine to Sit Supine to Sit Independent Scooting Scooting to Edge of Bed Standby Assistance PT-Transfer Assessment Sit to and From Stand Sit to and from Stand Contact Guard Assistance, Minimal Assistance,1 Person Assistance,Use of Upper Extremities Equipment Transfer Assistive Device Gait Belt,Front Wheeled Walker Orthotic/Prosthetic Devices or Brace: No Transfers Transfer Technique R foot hop Comments Mobility Comments Pt performs bed Ind/SBA. STS with FWW CGA/Robert, pt demonstrates awareness of his NWBering on LLE. He hops with R foot to toilet, pt fatigues quickly.Pt requested BOX SPINNER shut door while pt is in the restroom. A few minutes later BOX SPINNER heard noise in the restroom and BOX SPINNER opened door to see pt standing up with no gown on and gait belt off. He states he was trying ot flush the toilet. I explained to him he does not get up without his walker and without assistance while in hospital, pt acknowledged understanding. Pt was left in the chair, all needs met. Gait Assessment Gait Gait Assistance Required: Moderate Assistance,1 Person Assist Distance (Feet) 20 Able to Maintain Weight Bearing Status Yes During Gait Assistive Devices Assistive Device Gait Belt,Front Wheeled Walker Orthotic/Prosthetic Devices or Brace: No Gait Deviations General Gait Pattern Decreased Stride Length, Decreased Feet Clearance, Flexed Trunk,Narrow Based Gait Factors Limiting Gait Function Factors Limiting Gait Function Decreased Activity Tolerance, Decreased Sensation,Decreased Strength,Difficulty Following Directions,Incoordination, Limited Range of Motion,Poor Balance,Poor Safety Awareness PT-Balance Assessment Sitting Balance and Reactions Static Sitting Balance Ability Good Dynamic Sitting Balance Ability Fair Standing Balance and Reactions Static Standing Balance Ability Fair Dynamic Standing Balance Ability Poor Device Used FWW M5 PT-IP Objective Assessments Start: 08/03/24 08:42 Freq: NEEDED Status: Active Protocol: Document 08/03/24 08:55 MB (Rec: 08/03/24 09:23 MB [id number]) Orientation Orientation/Cognition Level of Alertness Alert Orientation Name,Age,Birthday,Year,Place, Situation Language Function Ability No Deficits Noted Safety Awareness Decreased Safety Awareness Memory Description No Deficits Noted Gross Range of Motion Upper Extremity ROM Impairments Defer to OT, no deficits noted with PT Lower Extremity ROM Assessment Left Impaired Impairments L ankle is in soft cast/splint and positioned in neutral DF Strength Lower Extremity Strength Assessment Left Impaired Hip Functional Knee Functional Ankle Ankle in soft cast/splint Coordination Assessment Gross Coordination Gross Coordination Impaired Sensation Assessment Sensation Gross Sensation Right LE Impaired,Left LE Impaired Comments Sensation Comments Pt reports baseline neuropathy and decreased sensation B feet/distal LEs Muscle Tone Muscle Tone WNL Yes M6 PT-IP Treatment Start: 08/03/24 08:42 Freq: NEEDED Status: Active Protocol: Document 08/05/24 09:33 TS (Rec: 08/05/24 09:42 TS [id number]) Physical Therapy Treatment Education Education Provided Weight Bearing Status,Safety M7 PT-IP Assessment and Plan Start: 08/03/24 08:42 Freq: NEEDED Status: Active Protocol: Document 08/05/24 09:33 TS (Rec: 08/05/24 09:42 TS [id number]) PT Summary Assessment and Plan Potential Rehabilitation Potential Good Summary Impairments ROM,Strength,Balance, Coordination,Sensation,Bed Mobility,Transfers,Gait, Activity Tolerance Progress Towards Goals Slow Progress due to Activity Tolerance Assessment Summary Ernesto continues to perform bed mobility Ind/SBA. He ambulates hopping on R foot with ModA and use of FWW. He has LOB x1 with FWW and fatigues quickly. He got up on his own without a FWW and without BOX SPINNER in the restroom. BOX SPINNER explained to the patient the importance of aasking for help and not getting up on his own, pt understands. PT continues to recommend SNF. Goals Bed Mobility Goal Independent Transfer Goal Standby Assistance,Front Wheeled Walker Gait Goal Standby Assistance,Front Wheel Walker Gait Distance 50 Other Goals Pt will ascend and descend 3 steps with use of rail and no more emilie CGA to practice safe home entrance. Days to Meet Goals 5 Frequency of Treatment Frequency Of Treatment Once a Day Treatment Plan Physical Therapy Treatment Plan Bed Mobility Training,Transfer Training,Gait Training, Therapeutic Exercise,Balance Retraining,Post Op Education, Discharge Planning,Hot or Cold Pack Weight Bearing Status Weight Bearing Status Non-Weight Bearing Allowed Weight Bearing Amount (enter % LLE, 10-12 weeks or #) (%) Recommendations To Nursing Amount of Assist Needed 2 Person Assist Discharge Recommendations PT Discharge Recommendations SNF Rehab Transportation Needs at Discharge Wheelchair/Cabulance
[2024-08-05] MEDS: DEXTROAMPHETAMINE AMPHETAMINE 30 MG 60 EACH PO (09:04)
--- NOTE | 2024-08-05 11:02 | CM.DPC ---
DCP Cont. Reviewed EMR and team rounds for status updates. Plan is for d/c to [facility] tomorrow (Sun), they will transport him between 11:45-12:00pm. Will fax d/c clinicals at that time.
[2024-08-05] MEDS: DEXTROAMPHETAMINE AMPHETAMINE 30 MG 30 EACH PO (13:09)
--- NOTE | 2024-08-05 17:31 | PM.PNPO.1 ---
Subjective Subjective Interval history: Found sitting comfortably in bed. No increase in pain or numbness of the left leg. Patient has pre-existing neuropathy of the bilateral lower extremities. Pain control with oral medications. Exam Vital Signs (past 8 hours): Oxygen Delivery Method Room Air Oxygen Flow Rate 0 Narrative Exam Narrative: Pt able to wiggle toes, flex and extend at knee. Sensation to touch intact above and below well-padded splint. No sharp edges or rubbing against skin is appreciated. Objective Labs 08/05/24 08:12 08/03/24 06:24 Labs: Laboratory Results - last 24 hr 08/05/24 08:12 Hgb 10.3 L Hct 30.5 L PFSH Social History details: , no children, 1 bottle of wine daily several days weekly household members: none Smoking Status: Former smoker alcohol intake: current Assessment & Plan Post-op Postoperative Procedures: Procedures Operation Date: 08/02/24 13:00 Actual Procedure Side Surgeon p ORIF Ankle Fracture Left Angelic Greenfield MD Postoperative day: 3 Postoperative plan narrative: 1) PT: 10-12 weeks nonweightbearing in neuropathic patient. 2) DVT prophylaxis with aspirin 325 mg enteric-coated x6 weeks, once daily. 3) Sutures remain in place a minimum of 3 weeks. 4) Pain control in the hospital will be his baseline pain medication plus additional immediate acting pain medication. 5) Appreciate hospitalist help w/ management of DM, HTN, and observation for EtOH withdrawal. 6) SNF. Per CM, pt eligible for SNF on 08/06. Will follow for PT and CM recommendations. Quality VTE Deep Vein Thrombosis/Pulmonary Embolism Present on Admission: No
[2024-08-05 20:47] VITALS: BP 148/72; PULSE 88; RESP 18; TEMP 37; O2SAT 96
[2024-08-06 08:00] VITALS: BP 138/64; PULSE 82; RESP 18; TEMP 36.2; O2SAT 100
--- NOTE | 2024-08-06 08:42 | CM.DPC ---
DCP Cont. Reviewed EMR and team rounds for status updates. Pt has been medically cleared for SNF rehab d/c today, [facility] will be transporting him at 11:45-12:00pm. Will fax d/c order and clinicals when available. 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
[2024-08-06] MEDS: buPROPion SR 150 MG TAB PO (09:05)
[2024-08-06] MEDS: FLUoxetine 20 MG CAPSULE 40 MG PO (09:05)
[2024-08-06 09:06] VITALS: BP 138/64
[2024-08-06] MEDS: METFORMIN HCL 500 MG TABLET 1000 MG PO (09:06)
[2024-08-06] MEDS: MORPHINE ER 15 MG TABLET 30 MG PO (09:06)
[2024-08-06] MEDS: ASPIRIN EC 325 MG TABLET PO (09:06)
[2024-08-06] MEDS: lisinopriL 20 MG TABLET 40 MG PO (09:06)
[2024-08-06] MEDS: ACETAMINOPHEN 325 MG TABLET 650 MG PO (09:46)
--- NOTE | 2024-08-06 10:13 | P.DS_ITS ---
History of Present Illness History of Present Illness Date Patient Seen: 08/06/24 Chief complaint: Fall Narrative: The patient is a 74-year-old male that takes typically 30 mg of long-acting morphine sulfate b.i.d. for many years he ran out of this medication on and has been an involuntary withdrawals. He was sleep walking which he states it is a side effect of loose withdrawals and twisted his ankle and fell. He does have diabetic neuropathy. He sustained a left ankle fracture dislocation was unable to ambulate with obvious deformity. He was indicated for open reduction internal fixation of his open ankle fracture dislocation. The risks and benefits of the procedure have been discussed with the patient and given the opportunity to ask questions. The risks of surgery include but are not limited to infection, malunion, nonunion, persistence of pain, damage to nerves and blood vessels, posttraumatic arthritis, DVT, PE, cardiopulmonary complications and . The patient expressed a thorough understanding of the risks and benefits of surgery and has elected to proceed. Consent was signed Discharge Providers Provider Date of admission: 08/02/24 11:05 Discharge Date: 08/06/24 Primary care physician: Jovan Gao DO Consults: 08/02/24 15:30 Consult to Discharge Planning Routine Comment: Consult to Hospitalist Service Routine Comment: Consulting Provider: Abdirahman Carrion V Reason for consultation: Diabetes, chronic narcotic dependence Has provider been notified: Yes Consult to Occupational Therapy Evaluate & Treat Comment: Physician Instructions: Evaluate and treat Consult to Physical Therapy Evaluate & Treat Comment: Nonweightbearing left lower extremity Physician Instructions: Evaluate and Treat Discharge provider: Avi Reese PA-C Summary Hospital Course Discharge Diagnosis: Open ankle fracture dislocation, left type 1 Diabetic neuropathy Chronic narcotic use Trimalleolar ankle fracture dislocation Hospital Course: rocedure: Open reduction internal fixation trimalleolar ankle fracture without fixation posterior lip CPT code 69152, left Open reduction internal fixation syndesmosis CPT code 58686, left Irrigation debridement skin subcutaneous tissue fascia bone from open fracture CPT code 65842, left Same procedure as scheduled: Yes Surgeon: Angelic Greenfield Click Yes if Unassisted: Yes Anesthesia Type: General and Local Operative Notes Findings: Type 1 open trimalleolar ankle fracture dislocation. Poke hole open wound medial malleolus with abrasion -- Medial malleolus: Reduction fixation with 2 x 4.0 cannulated screws Lateral malleolus: 8 hole 1/3 tubular locking capable plate Syndesmotic disruption reduction and fixation: 2 x 4.7 osteopenia screws, tricortical Closure Type: primary Specimen(s): none sent Prosthetic devices, grafts, tissues, transplants, or devices: [employer]ak [employer] 1/3 tubular locking plate 8 hole. 13.5 locking screw distally. Remainder of screws 3.5 nonlocking screws. [employer]ayak [employer] 4.0 cannulated screws x 2 : 40 mm partially threaded [employer]ak [employer] 4.7 osteoporosis syndesmotic screws. X2 55 mm Estimated Blood Loss (mL): 150 Blood products transfused: none Tourniquet time (min): 150 Status at Discharge Cognitive/behavioral status at discharge: oriented Functional status at discharge: uses cane/walker Time Spent with Patient Time spent: Less than 30 minutes Exam Vital Signs (past 8 hours): - 08/06/24 08:00 08/06/24 09:06 Temperature 97.1 F L Pulse Rate 82 Respiratory Rate 18 Blood Pressure 138/64 138/64 Pulse Oximetry 100 Oxygen Flow Rate 0 Oxygen Delivery Method Room Air Oxygen Flow Rate 0 Narrative Exam Narrative: Found sitting comfortably in bed. No increase in pain or numbness of the left leg. Patient has pre-existing neuropathy of the bilateral lower extremities. Pain control with oral medications. Pt able to wiggle toes, flex and extend at knee. Sensation to touch intact above and below well-padded splint. No sharp edges or rubbing against skin is appreciated. Objective Labs 08/05/24 08:12 08/03/24 06:24 [facility] Social History details: , no children, 1 bottle of wine daily several days weekly household members: none Smoking Status: Former smoker alcohol intake: current Discharge Assessment & Plan Assessment and Plan Assessment: Status post Left ORIF Ankle Fracture Plan of Treatment: 1) PT: 10-12 weeks nonweightbearing in neuropathic patient. 2) DVT prophylaxis with aspirin 325 mg enteric-coated x6 weeks, once daily. 3) Sutures remain in place a minimum of 3 weeks. 4) Pain control will be his baseline pain medication. 5) Plan to DC to SNF Discharge Plan Discharge Plan Patient Disposition: SNF Transfer to: [facility] Discharge orders & Medications Prescriptions: New aspirin 325 mg Tablet,Delayed Release (Dr/Ec) 325 mg PO DAILY Qty: 42 0RF acetaminophen 325 mg Tablet 650 mg PO Q6H Qty: 90 0RF morphine 15 mg Tablet Extended Release 30 mg PO BID Qty: 30 0RF dextroamphetamine-amphetamine 30 mg Tablet 30 mg PO 1300 Qty: 15 0RF dextroamphetamine-amphetamine 30 mg Tablet 60 mg PO DAILY Qty: 30 0RF Continued metformin [Glucophage] 1,000 MG tablet 1,000 mg PO BIDWM Qty: 0 lisinopril [Zestril] 40 MG tablet 40 mg PO DAILY Qty: 0 bupropion HCl 150 mg tablet sustained-release 12 hr 150 mg PO BID fluoxetine 40 mg capsule 40 mg PO DAILY morphine 30 mg tablet extended release 30 mg PO BID Qty: 30 0RF Discontinued dextroamphetamine-amphetamine 30 MG tablet 30 mg PO 1300 Qty: 0 Rx Instructions: PATIENT TAKES 2 TAB (60MG) IN THE MORNING AND 1 TAB (30MG) IN THE AFTERNOON dextroamphetamine-amphetamine 30 mg tablet 60 mg PO QAM Rx Instructions: PATIENT TAKES 2 TAB (60MG) IN THE MORNING AND 1 TAB (30MG) IN THE AFTERNOON Follow up/Referrals: Angelic Greenfield MD [Physician] - (Follow up w/ PA in ortho clinic or Dr Greenfield in 3 weeks for wound check and possible suture removal.) Jovan Gao DO [Primary Care Provider] - Diet/Activity/Treatments Diet: Diet as Tolerated Activity: Nonweightbearing for 10-12 weeks. Skin/Wound/Dressing Care Report to your healthcare provider any signs of infection, such as:: chills, fever, night sweats, unusual drainage and unusual redness [facility] Rehab type: Physical therapy Visit Report/Discharge Packet Instructions: DI for Open Reduction Internal Fixation Surgery Stand Alone Forms: Patient Portal/API, Surgery Discharge Discharge Data Primary Care Provider: Jovan Gao VTE Deep Vein Thrombosis/Pulmonary Embolism Present on Admission: No
[2024-08-06] MEDS: HYDROMORPHONE 2 MG TABLET PO (11:35)
--- NOTE | 2024-08-06 11:47 | PC.NURSE ---
Report called to Judith JORGE at [facility]-all questions answered. IV has been removed. Pt is packed up and ready for discharge as soon as transport arrives to take him.
== END 2024-08-06 12:05 | DRG 494 ==
LOC: ED 11:03 → AC 11:06
PROVIDERS: Internal Medicine; Admitting Provider Orthopaedic Surgery Foot and Ankle Surgery; Emergency Provider Emergency Medicine; PCP Family Medicine; Referring Provider Emergency Medicine; Visit Provider Orthopaedic Surgery Foot and Ankle Surgery
PROC: 0QSH04Z Reposition Left Tibia with Internal Fixation Device, Open Approach (ICD-10-PCS; principal; 2024-08-02 13:00)
DX: S82.852B Displaced trimalleolar fracture of left lower leg, initial encounter for open fracture type I or II (principal); E11.42 Type 2 diabetes mellitus with diabetic polyneuropathy; G89.4 Chronic pain syndrome; F10.90 Alcohol use, unspecified, uncomplicated; F98.8 Other specified behavioral and emotional disorders with onset usually occurring in childhood and adolescence; R26.89 Other abnormalities of gait and mobility; I10 Essential (primary) hypertension; W18.30XA Fall on same level, unspecified, initial encounter; Z79.84 Long term (current) use of oral hypoglycemic drugs; Z79.891 Long term (current) use of opiate analgesic; Z87.891 Personal history of nicotine dependence
CPT/HCPCS: 27818; 36415; 71045; 73600; 73610; 73620; 76000; 80048; 80053; 82550; 82962; 83036; 83690; 84484; 85014; 85018; 85025; 93005; 96374; 96376; 97116; 97161; 97166; 97530; 97535; 99152; 99285; 99291; 99292; J0171; J0330; J0690; J1100; J1171; J1815; J2250; J2405; J2704; J3010

== ENCOUNTER → 2024-10-14 08:35 | Outpatient (CLI) | payer MEDICARE, SELFPAY ==
[2024-08-02 15:34] VITALS: BMI 28.7
== END ==
PROVIDERS: PCP Family Medicine; Referring Provider Physician Assistant Medical; Visit Provider Surgery
DX: E11.42 Type 2 diabetes mellitus with diabetic polyneuropathy (principal); E11.628 Type 2 diabetes mellitus with other skin complications; S91.002A Unspecified open wound, left ankle, initial encounter; R60.0 Localized edema; I87.2 Venous insufficiency (chronic) (peripheral)
CPT/HCPCS: 11042; 87070; 87205; 99203; 99214

== ENCOUNTER → 2024-10-28 09:00 | Outpatient (CLI) | payer MEDICARE, SELFPAY ==
[2024-08-02 15:34] VITALS: BMI 28.7
== END ==
PROVIDERS: PCP Family Medicine; Referring Provider Physician Assistant Medical; Visit Provider Surgery
DX: E11.628 Type 2 diabetes mellitus with other skin complications (principal); T81.89XA Other complications of procedures, not elsewhere classified, initial encounter; L98.8 Other specified disorders of the skin and subcutaneous tissue; S91.002A Unspecified open wound, left ankle, initial encounter; R60.0 Localized edema; I87.2 Venous insufficiency (chronic) (peripheral)
CPT/HCPCS: 11042

== ENCOUNTER → 2024-11-04 13:51 | Outpatient (CLI) | payer MEDICARE, SELFPAY ==
[2024-08-02 15:34] VITALS: BMI 28.7
== END ==
PROVIDERS: PCP Family Medicine; Referring Provider Family Medicine; Visit Provider Surgery
DX: T81.89XA Other complications of procedures, not elsewhere classified, initial encounter (principal); L98.8 Other specified disorders of the skin and subcutaneous tissue; S91.002A Unspecified open wound, left ankle, initial encounter; R60.0 Localized edema; E11.42 Type 2 diabetes mellitus with diabetic polyneuropathy
CPT/HCPCS: 11042

== ENCOUNTER → 2024-11-11 14:17 | Outpatient (CLI) | payer MEDICARE, SELFPAY ==
[2024-08-02 15:34] VITALS: BMI 28.7
== END ==
LOC: WC 14:19
PROVIDERS: PCP Family Medicine; Referring Provider Physician Assistant Medical; Visit Provider Surgery
DX: E11.628 Type 2 diabetes mellitus with other skin complications (principal); T81.89XA Other complications of procedures, not elsewhere classified, initial encounter; L98.8 Other specified disorders of the skin and subcutaneous tissue; S91.002A Unspecified open wound, left ankle, initial encounter; R60.0 Localized edema; I87.2 Venous insufficiency (chronic) (peripheral)
CPT/HCPCS: 11042; 99213

== ENCOUNTER → 2024-11-18 15:41 | Outpatient (CLI) | payer MEDICARE, SELFPAY ==
[2024-08-02 15:34] VITALS: BMI 28.7
== END ==
PROVIDERS: PCP Family Medicine; Referring Provider Physician Assistant Medical; Visit Provider Surgery
DX: S91.002A Unspecified open wound, left ankle, initial encounter (principal); T81.89XA Other complications of procedures, not elsewhere classified, initial encounter; E11.628 Type 2 diabetes mellitus with other skin complications
CPT/HCPCS: 11042

== ENCOUNTER → 2024-11-25 15:07 | Outpatient (CLI) | payer MEDICARE, SELFPAY ==
[2024-08-02 15:34] VITALS: BMI 28.7
== END ==
LOC: WC 15:08
PROVIDERS: PCP Family Medicine; Referring Provider Physician Assistant Medical; Visit Provider Surgery
DX: T81.31XD Disruption of external operation (surgical) wound, not elsewhere classified, subsequent encounter (principal); S91.002D Unspecified open wound, left ankle, subsequent encounter
CPT/HCPCS: 99212; 99213

== ENCOUNTER → 2024-12-08 13:30 | Outpatient (CLI) | payer MEDICARE, SELFPAY ==
[2024-08-02 15:34] VITALS: BMI 28.7
== END ==
PROVIDERS: PCP Family Medicine; Referring Provider Physician Assistant Medical; Visit Provider Surgery
DX: T81.89XD Other complications of procedures, not elsewhere classified, subsequent encounter (principal); S91.002D Unspecified open wound, left ankle, subsequent encounter
CPT/HCPCS: 99213